=== PATIENT | female | born 1965 | race Caucasian/White ===

== ENCOUNTER 2016-07-30 17:13 | Observation (INO) | payer BC ==
[~2016-07-30] VITALS: Ht 157.5 cm; Wt 73.6 kg
[2016-07-30] MEDS ORDERED: METOCLOPRAMIDE INJ 10MG/2ML VIAL (J2765) As Ordered ONE (18:52)
--- NOTE | 2016-07-30 19:00 | REPUSA ---
CLINICAL HISTORY: CVA. TECHNIQUE: Multiple axial brain CT scan sections were obtained from base to vertex without contrast a dministration. COMMENTS: The study shows normal configuration of sella turcica. There are no intra or extra-axial collections. There is no mass effect or midline shift. There is no evidence of hematoma formation. No hydrocephal us is present. No abnormal calcifications are noted. No significant abnormalities are seen either in the posterior fossa or supratentorial compartment. The sinuses and mastoid air cells are patent. IMPRESSION: No evidence of acute intracranial pathology. Consider follow up with MRI/diffusion as clinically war ranted. Thank you for your kind referral of this patient.
[2016-07-30 19:20] LABS: BASO % 0.3 % (0.0-1.0); EOS % 0.6 % (0.0-3.0); LARGE UNSTAINED CELL # 0.1 K/mm3 (0.0-0.4); LARGE UNSTAINED CELL % 1.4 % (0.0-4.0); LYMPH # 2.7 K/mm3 (1.5-4.5); LYMPH % 30.5 % (24.0-44.0); MEAN CORPUSCULAR HEMOGLOBIN 30.2 pg (27.0-33.0); MEAN CORPUSCULAR HGB CONC 33.9 g/dl (32.0-36.5); MEAN CORPUSCULAR VOLUME 89.1 fl (80.0-96.0); MONO # 0.4 K/mm3 (0.0-0.8); MONO % 4.3 % (0.0-5.0); NEUTROPHILS # 5.5 K/mm3 (1.8-7.7); NEUTROPHILS % 62.9 % (36.0-66.0); PLATELET COUNT, AUTOMATED 244 k/mm3 (150-450); RED CELL DISTRIBUTION WIDTH 11.8 % (11.5-14.5); WHITE BLOOD COUNT 8.8 K/mm3 (4.0-10.0)
[2016-07-30 19:43] LABS: ALBUMIN 3.9 GM/DL (3.2-5.2); ALBUMIN/GLOBULIN RATIO 1.22 (1.00-1.93); ALKALINE PHOSPHATASE 64 U/L (45-117); ALT/SGPT 23 U/L (12-78); ANION GAP 7 MEQ/L (8-16); AST/SGOT 15 U/L (15-37); BILIRUBIN,DIRECT < 0.1 MG/DL (0.0-0.2); BILIRUBIN,TOTAL 0.3 MG/DL (0.2-1.0); BLOOD UREA NITROGEN 16 MG/DL (7-18); CALCIUM LEVEL 8.8 MG/DL (8.5-10.1); CARBON DIOXIDE LEVEL 28 MEQ/L (21-32); CHLORIDE LEVEL 106 MEQ/L (98-107); CREATININE FOR GFR 0.91 MG/DL (0.55-1.02); GLOMERULAR FILTRATION RATE > 60.0 (>51); GLUCOSE, FASTING 91 MG/DL (70-105); POTASSIUM SERUM 3.5 MEQ/L (3.5-5.1); SODIUM LEVEL 141 MEQ/L (136-145); TOTAL PROTEIN 7.1 GM/DL (6.4-8.2)
[2016-07-30] MEDS ORDERED: KETOROLAC 30 MG/ML VIAL (J1885) As Ordered ONE (20:04)
[2016-07-30 20:09] LABS: ERYTHROCYTE SEDIMENTATION RATE 14 mm/hr (0-30)
[2016-07-30] MEDS ORDERED: VENLAFAXINE **XR** 75MG CAPSULE PO SCH (21:00)
[2016-07-30] MEDS ORDERED: ATORVASTATIN 10 MG TAB PO SCH (21:00)
--- NOTE | 2016-07-30 21:10 | REPUSA ---
MRI of the brain Clinical history: possible stroke. Comparison: 07/30/2016. Technique: Multiecho multiplanar MRI images of the brain were obtained without administration of cont rast. Diffusion weighted images with ADC mapping was also obtained. Findings: The ventricles and sulci are symmetric bilaterally. The brain parenchyma demonstrates uniform and nor mal signal on all sequences. There is no midline shift, mass effect, or extra-axial fluid collection. The midline intracranial structures do not demonstrate any gross abnormalities. The cervical cranial junction is intact. The orbits are unremarkable. The visualized paranasal sinuses and mastoid air ce lls are clear. The osseous structures and superficial soft tissues are unremarkable. The vascular str uctures demonstrate appropriate flow voids. Impression: Normal MRI of the Brain.
[2016-07-30] MEDS ORDERED: DEXI30CA PO (21:11)
[2016-07-30] MEDS ORDERED: VITA50003 PO (21:11)
[2016-07-30] MEDS ORDERED: VENL150C43 PO (21:11)
[2016-07-30] MEDS ORDERED: ATOR1TAB19 PO (21:11)
[2016-07-30] MEDS ORDERED: IBUPOTC PO (21:11)
[2016-07-30] MEDS ORDERED: LISI30TA4 PO (21:11)
--- NOTE | 2016-07-30 21:20 | REPUSA ---
MRA of the brain. Comparison: MRI, 07/30/2016. Clinical history: possible stroke. Technique: [id number] MRA images of the brain were obtained without administration of contrast. 3 -D MIP images were also obtained. Findings: The vascular structures extending from the distal carotid and vertebrobasilar arterial syst ems, through the [place], demonstrate normal caliber and contour. There is no evidence of an eurysm, stenosis, or thrombosis. Impression: Unremarkable MRA examination of the brain.
[2016-07-30] MEDS ORDERED: POTASSIUM CHLORIDE 10 MEQ SR TABLET PO SCH (21:30)
[2016-07-30] MEDS ORDERED: ACETAMINOPHEN TAB 650MG DOSE (2X325MG) PO PRN (21:45)
[2016-07-30] MEDS ORDERED: ONDANSETRON 4MG/2ML VIAL (J2405) IV PRN (21:45)
[2016-07-30] MEDS ORDERED: KETOROLAC 30 MG/ML VIAL (J1885) IV PRN (21:45)
[2016-07-30] MEDS ORDERED: METOCLOPRAMIDE INJ 10MG/2ML VIAL (J2765) IV PRN (21:45)
[2016-07-30] MEDS ORDERED: ATORVASTATIN 20 MG TAB As Ordered ONE (22:51)
[2016-07-30] MEDS ORDERED: VENLAFAXINE **XR** 75MG CAPSULE As Ordered ONE (22:51)
[2016-07-30] MEDS ORDERED: POTASSIUM CHLORIDE 10 MEQ SR TABLET As Ordered ONE (22:51)
[2016-07-30 23:00] VITALS: BP 120/58
--- NOTE | 2016-07-30 23:24 | HPE ---
DATE OF ADMISSION: 07/30/2016 PRIMARY CARE PROVIDER: Alisha Jacob NP CHIEF COMPLAINT: Headache, tinnitus and left upper extremity paresthesia. HISTORY OF PRESENT ILLNESS: This is a 50-year-old female patient with underlying medical history of depression, dyslipidemia, hypertension, gastroesophageal reflux disease (GERD), presented since Saturday with episodic headache. As per patient was occipital radiating to the front of parietal lobes, lasting about 20 minutes, aching and throbbing with palpating pain. At its worst ranging from 10 out of 10 to about 7 out of 10. The patient also reported associated left ear tinnitus and left hand and shoulder numbness, and tingling sensation. Reported mild lightheadedness. No fevers, chills, chest pain, pressure or discomfort. No coughing. Denies any previous similar episode. The patient subsequently had one episode on Saturday, one episode on Saturday, one episode on Saturday. As per patient, does not worsen with light. No relieving factors either. ALLERGIES: LATEX, PYRIDINE NITRATE, ORGANIC NITROFURANTOIN, PENICILLIN, SULFA DRUGS, SULFA DRUG CROSS-REACTORS. PAST MEDICAL HISTORY: Depression. Dyslipidemia. Hypertension. Gastroesophageal reflux disease (GERD). PAST SURGICAL HISTORY: Dilation and curettage (D and C). section. Hysterectomy. Left ankle open reduction internal fixation. SOCIAL HISTORY: Patient denies smoking. Once a week drinks about three beers. FAMILY HISTORY: Noncontributory. REVIEW OF SYSTEMS: Negative except for those mentioned in the HPI. HOME MEDICATIONS: - Lipitor 10 mg by mouth nightly - Dexilant 30 mg by mouth nightly - vitamin C 50,000 units by mouth once a week - ibuprofen 800 mg by mouth three times a day as needed - lisinopril 30 mg by mouth daily - venlafaxine 150 mg by mouth nightly PHYSICAL EXAMINATION: VITAL SIGNS: Blood pressure 163/84, pulse 82, respirations 18, temperature 98.1, pulse oximetry 100% on room air. GENERAL: The patient alert and oriented times three. No acute distress. HEENT: Normocephalic, atraumatic. PULMONARY: Bilateral clear to auscultation. CARDIAC: Regular rate and rhythm. Normal S1, S2. ABDOMEN: Soft, nontender, nondistended. EXTREMITIES: No clubbing, cyanosis or edema. NEUROLOGICAL: Cranial nerves II through XII grossly intact. Upper and lower extremity strength 5 out of 5 bilateral. Brisk reflexes 2+ bilateral. LABORATORY: WBC 8.8, hemoglobin and hematocrit 12.8/37.8, platelets 244. Chemistry: Sodium 141, potassium 3.5, chloride 106, bicarbonate 28, BUN 16, creatinine 0.91. C-reactive protein less than 0.3. MRI of the brain and MRA of the brain negative. ASSESSMENT AND PLAN: This is a 50-year-old female patient with underlying medical history of depression, hypertension, dyslipidemia, GERD, presented with headache and questionable transient ischemic attack (TIA). 1. Headache and questionable TIA. Possible tension headache. MRI/MRA appreciate. Negative. Followup carotid ultrasound. Followup echocardiogram, EKG. Will give Toradol and Reglan to see if improvement. Neuro checks. Aspirin has been added. The patient already on statin at home. Will continue to monitor. Followup lipid panel in the morning. 2. Hypertension. Continue blood pressure medication. Adjust as needed. 3. Dyslipidemia. Continue statin. 4. Depression. Continue home medication. 5. Gastroesophageal reflux disease (GERD). Continue proton pump inhibitor (PPI). 6. Deep venous thrombosis (DVT) prophylaxis. Lovenox subcutaneous. DISPOSITION PLANNING: Home safety evaluation. Echocardiogram and carotid Doppler.
[2016-07-30 23:30] VITALS: BP_SYST 144; BP_SYST 149; BP_SYST 152; BP_DIAS 75; BP_DIAS 89
--- NOTE | 2016-07-31 03:37 | REP ---
Clinical: Transient ischemic attacks . Technique: Kirby scale and color Doppler evaluation using linear high frequency transducer Findings: Two-dimensional kirby scale and color images demonstrate normal arterial lumen with laminar flow and no appreciable narrowing. Color Doppler interrogation demonstrates normal arterial wave patterns and velocities with no significant spectral broadening. Normal flow direction is appreciated in the bilateral vertebral arteries. RIGHT (cm/s) LEFT (cm/s) ICA peak systolic velocity 71.2 69.5 ICA diastolic velocity 28.3 36.2 ECA peak systolic velocity 90.5 63.6 CCA peak systolic velocity 111.1 85.6 ICA/CCA ratio 0.6 0.8 Impression: No hemodynamically significant areas of narrowing or stenosis appreciated. Based on set standards narrowing falls within the normal range. Signed by Jose Haynes MD 07/31/2016 03:28 A
[2016-07-31 04:00] VITALS: BP 139/72
[2016-07-31 06:21] LABS: MEAN CORPUSCULAR HEMOGLOBIN 30.8 pg (27.0-33.0); MEAN CORPUSCULAR HGB CONC 34.6 g/dl (32.0-36.5); MEAN CORPUSCULAR VOLUME 89.1 fl (80.0-96.0); RED CELL DISTRIBUTION WIDTH 11.8 % (11.5-14.5); WHITE BLOOD COUNT 6.5 K/mm3 (4.0-10.0)
[2016-07-31 06:44] LABS: ANION GAP 7 MEQ/L (8-16); BLOOD UREA NITROGEN 17 MG/DL (7-18); CALCIUM LEVEL 8.6 MG/DL (8.5-10.1); CARBON DIOXIDE LEVEL 27 MEQ/L (21-32); CHLORIDE LEVEL 110 MEQ/L (98-107); CHOLESTEROL LEVEL 212 MG/DL (<200); CREATININE FOR GFR 0.86 MG/DL (0.55-1.02); GLOMERULAR FILTRATION RATE > 60.0 (>51); GLUCOSE, FASTING 93 MG/DL (70-105); MAGNESIUM LEVEL 2.1 MG/DL (1.8-2.4); POTASSIUM SERUM 4.4 MEQ/L (3.5-5.1); SODIUM LEVEL 144 MEQ/L (136-145); T UPTAKE 32 % (30-39); THYROXINE (T4) 8.5 UG/DL (4.5-12.0); TRIGLYCERIDES LEVEL 185 MG/DL (<150)
[2016-07-31] MEDS ORDERED: METOCLOPRAMIDE INJ 10MG/2ML VIAL (J2765) As Ordered ONE (06:47)
[2016-07-31] MEDS ORDERED: KETOROLAC 30 MG/ML VIAL (J1885) As Ordered ONE (06:47)
[2016-07-31 08:00] VITALS: BP 148/80
--- NOTE | 2016-07-31 08:20 | REP ---
MRI CERVICAL SPINE WITHOUT CONTRAST: HISTORY: Headache. A small central disc protrusion is present at the C2-3 level. There is minimal effacement of the thecal sac without spinal cord compression. The C2 neural foramina are patent. A small right paracentral disc protrusion is present at the C3-4 level. There is minimal effacement of the thecal sac without spinal cord compression. Uncinate process hypertrophy is present on the left. This produces minimal narrowing of the left C3 neural foramen. The right C3 neural foramen is patent. A disc bulge is present at the C4-5 level. There is minimal effacement of the thecal sac without spinal cord compression. The C4 neural foramina are patent. A disc bulge with associated osteophyte formation is present at the C5-6 level. There is mild effacement of the thecal sac without spinal cord compression. Bilateral uncinate process hypertrophy is present. This produces minimal and mild narrowing of the right and left C5 neural foramina respectively. A disc bulge and small left paracentral disc protrusion are present at the C6-7 level. There is mild effacement of the thecal sac without spinal cord compression. Uncinate process hypertrophy is present on the left. This produces mild narrowing of the left C6 neural foramen. The right C6 neural foramen is patent. There is no other disc bulge or herniation. The remaining neural foramina are patent. The spinal cord is normal in signal intensity. There is no intradural extramedullary lesion. The C5-6 intervertebral disc is decreased in height consistent with disc degeneration. Normal signal intensity is present in the cervical vertebral bodies. IMPRESSION: There is cervical spondylosis at the C2-3 through C6-7 levels without spinal cord compression. Signed by Jose Luis Raines MD 07/31/2016 08:36 A
[2016-07-31] MEDS ORDERED: ENOXAPARIN 40 MG/0.4 ML SYRINGE (J1650) SC SCH (09:00)
[2016-07-31] MEDS ORDERED: PANTOPRAZOLE 40MG TAB (PROTONIX) PO SCH (09:00)
[2016-07-31] MEDS ORDERED: ASPIRIN 81 MG ENTERIC TAB PO SCH (09:00)
[2016-07-31] MEDS ORDERED: SENOKOT S TAB PO SCH (09:00)
[2016-07-31] MEDS ORDERED: LISINOPRIL 10 MG TAB PO SCH (09:00)
[2016-07-31 09:34] VITALS: BP 154/78
--- NOTE | 2016-07-31 09:42 | DSES ---
DATE OF ADMISSION: 07/30/2016 DATE OF DISCHARGE: REASON FOR ADMISSION: The patient presented to the emergency department with complaint of right occipital headache, nausea and very transient, lasting only a few seconds, paresthesias of the left hand and arm. The sequence was interpreted as a transient ischemic attack. She was admitted. Imaging was carried out with brain MRI, CT of her brain, vascular ultrasound. All of the studies were negative. Cervical spine MRI was also done this morning, which showed small disc bulge and left paracentral disc protrusion at C6-C7 level, disc bulge and associated osteophyte seen at C5-C6 level and some mild effacement of the thecal sac, but no spinal cord compression. There is minimal mild narrowing of the right and left C5 neural foramen. There was also right paracentral disc protrusion at C3-4 level, again some effacement of the thecal sac without spinal cord compression and some narrowing of the left C3 and right C3 neural foramen were observed. HOSPITAL COURSE: She was treated for a headache with combinations of metoclopramide, Ketorolac, and symptoms improved. In fact, at this point, she is asymptomatic, having received a repeat dose of Ketorolac this morning. Moves the neck well without any evidence of triggering of paresthesias. There is no focal weakness. No sensory deficit. Her speech is clear. She is alert, oriented and there is no other neurologic disturbance present. Blood pressure is 139/72 at 0400, 148/80 at 0800. She is afebrile with a temperature of 98.1. Oxygen saturation is 96% on room air, pulse 69, respiratory rate 18. DISCHARGE DIAGNOSIS: Right-sided occipital headache with associated transient left arm paresthesia. Although this could be a TIA, it is also possible and more likely that this was a complex migraine and it is possible that she had some paresthesias related to spondylosis and degenerative disc disease, as evidenced by the imaging study, as noted. Neural directed imaging was entirely negative. She does have a remote history of migraine, although none quite as severe as this one that brought her to the emergency department this time. PLAN: She will followup. Routine activity. Diet per her usual routine. She can return to work tomorrow. As needed use of Motrin or Aleve was reviewed. She is not a smoker and will continue to abstain from tobacco use. Followup with her primary care provider in 1 to 2 weeks, and contact us or her primary care provider if there is any recurrent symptoms. DISCHARGE DIAGNOSES: 1. Right-sided occipital headache, possible migraine. 2. Transient left arm paresthesia. 3. Cervical spondylosis. 4. History of hypertension. 5. History of hypercholesterolemia.
--- NOTE | 2016-07-31 10:35 | EDDOCDS ---
Nurse's Notes [facility] Name: Yazmin Beatty Age: 50 yrs Sex: Female : 1965 Arrival Date: 07/30/2016 Time: 17:13 Bed Admit Hold Private MD: Mariely Jacob NP Diagnosis: Headache Presentation: 07/30 17:33 Presenting complaint: Patient states: pt reports waking up on Saturday with a headache, ead denies relief with Motrin. denies hx of headaches. reports 3 similar headaches of the past month. This patient has no additional risk factors. Adult Sepsis Screening: The patient does not have new or worsening altered mentation. Patient's respiratory rate is less than 22. Systolic blood pressure is greater than 100. Patient has a qSOFA score of 0- Negative Sepsis Screen. 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 Transition of care: patient was not received from another setting of care. 17:33 Acuity: ARMANDO Level 3 ead 17:33 Method Of Arrival: Walkin/Carried/Asstd ead 17:37 Suicide/Homicide risk assessment- the patient denies having any suicidal and/or ead homicidal ideations and does not present with any other emotional, behavioral or mental health complaints. Triage Assessment: 17:33 Headache History: This patient does not have a history of previous headaches. General: ead Appears in no apparent distress, Behavior is appropriate for age, cooperative. Pain: Location: face, right ear and left ear. Pain: Pain currently is 7 out of 10 on a pain scale. Pain began 2-3 days ago Also complains of no other associated symptoms. Pain: Quality of pain is described as pressure. HIV screening NA for this visit Offered previously. Neurological: Level of Consciousness is awake, alert, obeys commands, Oriented to person, place, time. 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 . Respiratory: Airway is patent Respiratory effort is even, unlabored. Derm: Skin is pink, warm & dry. 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 lisinopril 30 mg Oral tab 1 tab once daily 2. Effexor 150 mg Oral nightly 3. Dexilant 20mg oral 1 cap nightly - PMHx: Depression; Hypercholesterolemia; Hypertension; GERD; - PSHx: D & C; (1986); Hysterectomy (1995); C section; - Social history: No barriers to communication noted, The patient speaks fluent Korean, Speaks appropriately for age, Smoking status: Patient states was never smoker of tobacco. - Family history: Not pertinent. - : The pt / caregiver states he / she is not on anticoagulants. Home medication list is obtained from the patient. - Exposure Risk Screening:: None identified. Screenin:55 Screening information is obtained from the patient. Fall risk: No risks identified. jmk Assistance ADL's: requires no assistance with activities of daily living. Abuse/DV Screen: The patient / caregiver reports he/she is: not in a situation that causes fear, pain or injury. Nutritional screening: No deficits noted. Advance Directives: Currently, there is no health care proxy. There is no active DNR order. There is no living will. There is no Power of Promotion Specialist. Advance directive information has not previously been placed in an [facility] medical record. home support is adequate. Assessment: 17:55 General: Appears alert and oriented x 3/ JUDITH minimally light sensitive. Indicates jmk discomfort changes location from occipital region to forehead. describes chirping sensation that has been intermittent to left ear. denies pain with movement of ear pinna. DÍAZ readily and without defects now or prior.. Pain: Pain currently is 4 out of 10 on a pain scale. Neurological: Level of Consciousness is awake, alert, Oriented to person, place, time. EENT: No deficits noted. 18:50 General: Appears describes 2-3/10 discomfort. remains alert/ oriented x 3.. jmk 19:52 General: Appears in no apparent distress, Behavior is cooperative. General: reports of rs3 right parietal area pain localized pain, not radiating. waiting on test results. denies of nausea/ will continue to monitor. . Pain: Pain currently is 5 out of 10 on a pain scale. 20:13 General: Sent to MRI. rs3 21:30 General: Appears in no apparent distress, returned from MRI. tolerated procedure well. rs3 admitting provider with patient. headache improved after Toradol. Eating boxed lunch. waiting for monitor bed to move her ot admit hold. . 22:30 General: Appears in no apparent distress, Behavior is appropriate for age, cooperative, rs3 denies of headache. resting comfortable. home comfort advisor on. vital stable. Vital Signs: 17:15 BP 163 / 84; Pulse 82; Resp 18; Temp 98.1(O); Pulse Ox 100% on R/A; Weight 70.31 kg ct3 (R); Height 5 ft. 2 in. (157.48 cm) (R); Pain 6/10; 20:04 BP 175 / 96; Pulse 70; Resp 18; Temp 98.6; Pulse Ox 97% ; Pain 5/10; ajs 22:36 BP 135 / 75 (auto/); rs3 22:37 Pulse 76 MON; Pulse Ox 98% ; rs3 22:50 BP 120 / 58 (auto/); rs3 23:01 Pulse 70 MON; rs3 17:15 Body Mass Index 28.35 (70.31 kg, 157.48 cm) ct3 Vitals: 17:15 Log In Time: July 30, 2016 at 17:13. ct3 Visual Acuity: 18:50 Left Eye Visual acuity 20/15, ; Right Eye Visual acuity 20/15, ; Both Eyes Visual jmk acuity 20/15; Without Lenses; ED Course: 17:14 Patient visited by Sherrell Tracey PCA. ct3 17:14 Patient moved to Waiting ct3 17:15 Mariely Jacob is Private Physician. ct3 17:16 Patient visited by Sherrell Tracey PCA. ct3 17:16 Patient moved to Pre RCE ct3 17:34 Triage Initiated ead 17:38 Porsha Francis, RN is Primary Nurse. ead 17:38 Patient moved to I8 / 16 ead 18:00 Patient visited by Mayito Resendez,AGUS. jmk 18:08 Filemon Raymond MD is Attending Physician. br1 18:17 Patient visited by Filemon Raymond MD. br1 19:06 Primary Nurse role handed off by Porsha Francis, RN j 19:07 C REACTIVE PROTEIN QUANTITATIV Sent. nithink 19:07 ERYTHROCYTE SEDIMENTATION RATE Sent. nithink 19:07 Liver Profile Sent. jmk 19:07 BMP Sent. jmk 19:07 CBC with Diff Sent. jmk 19:08 Patient visited by Mayito Resendez,RN. jmk 19:08 Inserted saline lock: 20 gauge in left antecubital area. jmk 19:17 CT Head Without Contrast Returned. EDMS 19:53 Patient visited by Keri Dlil,AGUS. rs3 20:04 Patient visited by Parul Barron. ajs 20:24 Patient moved to MRI ajs 20:25 Iris Ibarra is Hospitalizing Provider. br1 21:45 Patient visited by Parul Barron. ajs 21:45 EKG done. (by ED staff). Reviewed by Filemon Raymond MD. ajs 21:48 -MRI-Brain without Returned. EDMS 21:48 -MRA-Brain without contrast Returned. EDMS 21:54 Patient moved to Admit Hold sls1 21:58 Patient moved to Ultrasound hgl 22:06 Patient moved to Admit Hold sls1 22:26 Pt greeted and oriented to ED. Patient advised of names of staff involved in care, ajs location of call olivares, wait times and NPO status. Patient has correct armband on for positive identification. Placed in gown. Bed in low position. Call light in reach. Side rails up X2. PT MOVED TO RM 18, FOR ADMIT HOLD STATUS, PT PLACED IN HOSPITAL BED. PT GIVEN HOSPITAL PANTS, SOCKS AND FRESH WARM BLANKETS. roll dough divider on. 22:27 Patient visited by Parul Barron. ajs 22:41 [facility] Payment Agreement was scanned into [employer] and attached to record. zo 0207 03:53 Duplex,carotid (complete) Returned. EDMS 08:55 MRI Spine,Cervical without con Returned. EDMS 09:53 T-Sheet-- Draft Copy was scanned into [employer] and attached to record. gb 09:56 Radiology Report was scanned into [employer] and attached to record. gb 10:33 Mariely Jacob is Referral Physician. sd1 Administered Medications: 07/30 19:07 Drug: NS 0.9% 1000 ml Route: IV; Rate: 150 mL/hr; Site: left antecubital; jmk 19:07 Drug: Metoclopramide 10 mg [metoclopramide 5 mg/mL injection solution] Route: IV; Rate: jmk 40 mg/hr; Infused Over: 15 mins; Site: left antecubital; 20:12 Follow up: IV Status: Completed infusion rs3 20:12 Drug: ketorolac 30 mg [ketorolac 30 mg/mL (1 mL) injection solution (1 mL)] Route: IVP; rs3 Site: left antecubital; Order Results: Lab Order: CBC with Diff; SPEC'M 07/30/16 19:02 Test: WHITE BLOOD COUNT; Value: 8.8; Range: 4.0-10.0; Units: K/mm3; Status: F Test: RED BLOOD COUNT; Value: 4.25; Range: 4.00-5.40; Units: M/mm3; Status: F Test: HEMOGLOBIN; Value: 12.8; Range: 12.0-16.0; Units: g/dl; Status: F Test: HEMATOCRIT; Value: 37.8; Range: 36.0-47.0; Units: %; Status: F Test: MEAN CORPUSCULAR VOLUME; Value: 89.1; Range: 80.0-96.0; Units: fl; Status: F Test: MEAN CORPUSCULAR HEMOGLOBIN; Value: 30.2; Range: 27.0-33.0; Units: pg; Status: F Test: MEAN CORPUSCULAR HGB CONC; Value: 33.9; Range: 32.0-36.5; Units: g/dl; Status: F Test: RED CELL DISTRIBUTION WIDTH; Value: 11.8; Range: 11.5-14.5; Units: %; Status: F Test: PLATELET COUNT, AUTOMATED; Value: 244; Range: 150-450; Units: k/mm3; Status: F Test: NEUTROPHILS %; Value: 62.9; Range: 36.0-66.0; Units: %; Status: F Test: LYMPH %; Value: 30.5; Range: 24.0-44.0; Units: %; Status: F Test: MONO %; Value: 4.3; Range: 0.0-5.0; Units: %; Status: F Test: EOS %; Value: 0.6; Range: 0.0-3.0; Units: %; Status: F Test: BASO %; Value: 0.3; Range: 0.0-1.0; Units: %; Status: F Test: LARGE UNSTAINED CELL %; Value: 1.4; Range: 0.0-4.0; Units: %; Status: F Test: NEUTROPHILS #; Value: 5.5; Range: 1.8-7.7; Units: K/mm3; Status: F Test: LYMPH #; Value: 2.7; Range: 1.5-4.5; Units: K/mm3; Status: F Test: MONO #; Value: 0.4; Range: 0.0-0.8; Units: K/mm3; Status: F Test: EOS #; Value: 0.0; Range: 0.0-0.50; Units: K/mm3; Status: F Test: BASO #; Value: 0.0; Range: 0.0-0.2; Units: K/mm3; Status: F Test: LARGE UNSTAINED CELL #; Value: 0.1; Range: 0.0-0.4; Units: K/mm3; Status: F Lab Order: [facility]; SPEC'M 07/30/16 19:02 Test: GLUCOSE, FASTING; Value: 91; Range: 70-105; Units: MG/DL; Status: F Test: BLOOD UREA NITROGEN; Value: 16; Range: 7-18; Units: MG/DL; Status: F Test: CREATININE FOR GFR; Value: 0.91; Range: 0.55-1.02; Units: MG/DL; Status: F Test: GLOMERULAR FILTRATION RATE; Value: > 60.0; Range: >51; Status: F Test: SODIUM LEVEL; Value: 141; Range: 136-145; Units: MEQ/L; Status: F Test: POTASSIUM SERUM; Value: 3.5; Range: 3.5-5.1; Units: MEQ/L; Status: F Test: CHLORIDE LEVEL; Value: 106; Range: 98-107; Units: MEQ/L; Status: F Test: CARBON DIOXIDE LEVEL; Value: 28; Range: 21-32; Units: MEQ/L; Status: F Test: ANION GAP; Value: 7; Range: 8-16; Abnormal: Below low normal; Units: MEQ/L; Status: F Test: CALCIUM LEVEL; Value: 8.8; Range: 8.5-10.1; Units: MG/DL; Status: F Test Note: ; Units are mL/min/1.73 m2 Chronic Kidney Disease Staging per NKF: Stage I & II GFR >=60 Normal to Mildly Decreased Stage III GFR 30-59 Moderately Decreased Stage IV GFR 15-29 Severely Decreased Stage V GFR <15 Very Little GFR Left ESRD GFR <15 on NEWS WRITER Lab Order: Liver Profile; [facility] 07/30/16 19:02 Test: AST/SGOT; Value: 15; Range: 15-37; Units: U/L; Status: F Test: ALT/SGPT; Value: 23; Range: 12-78; Units: U/L; Status: F Test: ALKALINE PHOSPHATASE; Value: 64; Range: 45-117; Units: U/L; Status: F Test: BILIRUBIN,TOTAL; Value: 0.3; Range: 0.2-1.0; Units: MG/DL; Status: F Test: BILIRUBIN,DIRECT; Value: < 0.1; Range: 0.0-0.2; Units: MG/DL; Status: F Test: TOTAL PROTEIN; Value: 7.1; Range: 6.4-8.2; Units: GM/DL; Status: F Test: ALBUMIN; Value: 3.9; Range: 3.2-5.2; Units: GM/DL; Status: F Test: ALBUMIN/GLOBULIN RATIO; Value: 1.22; Range: 1.00-1.93; Status: F Lab Order: ERYTHROCYTE SEDIMENTATION RATE; [facility] 07/30/16 19:02 Test: ERYTHROCYTE SEDIMENTATION RATE; Value: 14; Range: 0-30; Units: mm/hr; Status: F Lab Order: C REACTIVE PROTEIN QUANTITATIV; [facility]07/30/16 19:02 Test: C REACTIVE PROTEIN QUANTITATIV; Value: < 0.30; Range: 0.00-0.30; Units: MG/DL; Status: F Lab Order: THYROID PROFILE; [facility]07/31/16 06:06 Test: T UPTAKE; Value: 32; Range: 30-39; Units: %; Status: F Test: THYROXINE (T4); Value: 8.5; Range: 4.5-12.0; Units: UG/DL; Status: F Test: FREE THYROXINE INDEX; Value: 2.7; Range: 1.3-4.8; Units: %; Status: F Test: THYROID STIMULATING HORMONE; Value: 2.240; Range: 0.358-3.740; Units: uIU/ML; Status: F Lab Order: COMPLETE BLOOD COUNT; [facility]07/31/16 06:06 Test: WHITE BLOOD COUNT; Value: 6.5; Range: 4.0-10.0; Units: K/mm3; Status: F Test: RED BLOOD COUNT; Value: 3.98; Range: 4.00-5.40; Abnormal: Below low normal; Units: M/mm3; Status: F Test: HEMOGLOBIN; Value: 12.3; Range: 12.0-16.0; Units: g/dl; Status: F Test: HEMATOCRIT; Value: 35.5; Range: 36.0-47.0; Abnormal: Below low normal; Units: %; Status: F Test: MEAN CORPUSCULAR VOLUME; Value: 89.1; Range: 80.0-96.0; Units: fl; Status: F Test: MEAN CORPUSCULAR HEMOGLOBIN; Value: 30.8; Range: 27.0-33.0; Units: pg; Status: F Test: MEAN CORPUSCULAR HGB CONC; Value: 34.6; Range: 32.0-36.5; Units: g/dl; Status: F Test: RED CELL DISTRIBUTION WIDTH; Value: 11.8; Range: 11.5-14.5; Units: %; Status: F Test: PLATELET COUNT, AUTOMATED; Value: 215; Range: 150-450; Units: k/mm3; Status: F Lab Order: BASIC METABOLIC PROFILE; [facility]07/31/16 06:06 Test: GLUCOSE, FASTING; Value: 93; Range: 70-105; Units: MG/DL; Status: F Test: BLOOD UREA NITROGEN; Value: 17; Range: 7-18; Units: MG/DL; Status: F Test: CREATININE FOR GFR; Value: 0.86; Range: 0.55-1.02; Units: MG/DL; Status: F Test: GLOMERULAR FILTRATION RATE; Value: > 60.0; Range: >51; Status: F Test: SODIUM LEVEL; Value: 144; Range: 136-145; Units: MEQ/L; Status: F Test: POTASSIUM SERUM; Value: 4.4; Range: 3.5-5.1; Abnormal: Delta; Units: MEQ/L; Status: F Test: CHLORIDE LEVEL; Value: 110; Range: 98-107; Abnormal: Above high normal; Units: MEQ/L; Status: F Test: CARBON DIOXIDE LEVEL; Value: 27; Range: 21-32; Units: MEQ/L; Status: F Test: ANION GAP; Value: 7; Range: 8-16; Abnormal: Below low normal; Units: MEQ/L; Status: F Test: CALCIUM LEVEL; Value: 8.6; Range: 8.5-10.1; Units: MG/DL; Status: F Test Note: ; Units are mL/min/1.73 m2 Chronic Kidney Disease Staging per NKF: Stage I & II GFR >=60 Normal to Mildly Decreased Stage III GFR 30-59 Moderately Decreased Stage IV GFR 15-29 Severely Decreased Stage V GFR <15 Very Little GFR Left ESRD GFR <15 on NEWS WRITER Lab Order: MAGNESIUM LEVEL; [facility] 07/31/16 06:06 Test: MAGNESIUM LEVEL; Value: 2.1; Range: 1.8-2.4; Units: MG/DL; Status: F Lab Order: CARDIAC MARKER PANEL; [facility] 07/31/16 06:06 Test: CPK CREATINE PHOSPHOKINASE; Value: 90; Range: 26-192; Units: U/L; Status: F Test: CK-MB VALUE MASS; Value: 1.1; Range: 0.0-3.6; Units: NG/ML; Status: F Test: MB/CK RELATIVE INDEX; Value: 1.22; Range: < OR =4; Status: F Test: TROPONIN I; Value: < 0.02; Range: < 0.10; Units: NG/ML; Status: F Test Note: ; DIAGNOSIS CRITERIA MMB ng/ml Relative Index (RI) NON-AMI < or = 5 N/A KIRBY ZONE > 5 < or = 4 AMI > 5 > 4 Lab Order: CARDIAC MARKER PANEL; [facility] 07/30/16 19:02 Test: CPK CREATINE PHOSPHOKINASE; Value: 119; Range: 26-192; Units: U/L; Status: F Test: CK-MB VALUE MASS; Value: 1.8; Range: 0.0-3.6; Units: NG/ML; Status: F Test: MB/CK RELATIVE INDEX; Value: 1.51; Range: < OR =4; Status: F Test: TROPONIN I; Value: < 0.02; Range: < 0.10; Units: NG/ML; Status: F Test Note: ; DIAGNOSIS CRITERIA MMB ng/ml Relative Index (RI) NON-AMI < or = 5 N/A KIRBY ZONE > 5 < or = 4 AMI > 5 > 4 Lab Order: CARDIAC RISK PROFILE; SPEC'M 07/31/16 06:06 Test: TRIGLYCERIDES LEVEL; Value: 185; Range: <150; Abnormal: Above high normal; Units: MG/DL; Status: F Test: CHOLESTEROL LEVEL; Value: 212; Range: <200; Abnormal: Above high normal; Units: MG/DL; Status: F Test: HDL CHOLESTEROL; Value: 53; Range: >40; Units: MG/DL; Status: F Test: LDL CHOLESTEROL; Value: 122.0; Range: <100; Abnormal: Above high normal; Units: MG/DL; Status: F Test: NON-HDL-C; Value: 159; Units: MG/DL; Status: F Test: CHOLESTEROL RISK RATIO; Value: 4.000; Range: <5; Status: F Radiology Order: CT Head Without Contrast Test: CT Head Without Contrast REASON FOR EXAMINATION: CVA >4.5hrs; ; CLINICAL HISTORY: CVA.; TECHNIQUE: Multiple axial brain CT scan sections were obtained from base to vertex without contrast a; dministration.; COMMENTS:; The study shows normal configuration of sella turcica. There are no intra or extra-axial collections.; There is no mass effect or midline shift. There is no evidence of hematoma formation. No hydrocephal; us is present. No abnormal calcifications are noted.; No significant abnormalities are seen either in the posterior fossa or supratentorial compartment.; The sinuses and mastoid air cells are patent.; IMPRESSION:; No evidence of acute intracranial pathology. Consider follow up with MRI/diffusion as clinically war; ranted.; Thank you for your kind referral of this patient.; ; Radiology Order: -MRA-Brain without contrast Test: -MRA-Brain without contrast REASON FOR EXAMINATION: CVA >4.5hrs; ; MRA of the brain.; Comparison: MRI, 07/30/2016.; Clinical history: possible stroke.; Technique: [id number] MRA images of the brain were obtained without administration of contrast. 3; -D MIP images were also obtained.; Findings: The vascular structures extending from the distal carotid and vertebrobasilar arterial syst; ems, through the upper [place] of [place], demonstrate normal caliber and contour. There is no evidence of an; eurysm, stenosis, or thrombosis.; Impression: Unremarkable MRA examination of the brain.; ; Radiology Order: -MRI-Brain without Test: -MRI-Brain without REASON FOR EXAMINATION: CVA >4.5hrs; ; MRI of the brain; Clinical history: possible stroke.; Comparison: 07/30/2016.; Technique: Multiecho multiplanar MRI images of the brain were obtained without administration of cont; rast. Diffusion weighted images with ADC mapping was also obtained.; Findings:; The ventricles and sulci are symmetric bilaterally. The brain parenchyma demonstrates uniform and nor; mal signal on all sequences. There is no midline shift, mass effect, or extra-axial fluid collection.; The midline intracranial structures do not demonstrate any gross abnormalities. The cervical cranial; junction is intact. The orbits are unremarkable. The visualized paranasal sinuses and mastoid air ce; lls are clear. The osseous structures and superficial soft tissues are unremarkable. The vascular str; uctures demonstrate appropriate flow voids.; Impression: Normal MRI of the Brain.; ; Radiology Order: Duplex,carotid (complete) Test: Duplex,carotid (complete) REASON FOR EXAMINATION: TIA; Clinical: Transient ischemic attacks .; ; Technique: Kirby scale and color Doppler evaluation using linear high frequency; transducer; ; Findings:; Two-dimensional kirby scale and color images demonstrate normal arterial lumen; with laminar flow and no appreciable narrowing. Color Doppler interrogation; demonstrates normal arterial wave patterns and velocities with no significant; spectral broadening. Normal flow direction is appreciated in the bilateral; vertebral arteries.; ; RIGHT (cm/s) LEFT (cm/s); ; ICA peak systolic velocity 71.2 69.5; ICA diastolic velocity 28.3 36.2; ECA peak systolic velocity 90.5 63.6; CCA peak systolic velocity 111.1 85.6; ICA/CCA ratio 0.6 0.8; ; Impression:; No hemodynamically significant areas of narrowing or stenosis appreciated.; Based on set standards narrowing falls within the normal range.; ; ; Signed by; Jose Haynes MD 07/31/2016 03:28 A; Radiology Order: MRI Spine,Cervical without con Test: MRI Spine,Cervical without con REASON FOR EXAMINATION: headache; MRI CERVICAL SPINE WITHOUT CONTRAST:; ; HISTORY: Headache.; ; A small central disc protrusion is present at the C2-3 level. There is minimal; effacement of the thecal sac without spinal cord compression. The C2 neural; foramina are patent.; ; A small right paracentral disc protrusion is present at the C3-4 level. There is; minimal effacement of the thecal sac without spinal cord compression. Uncinate; process hypertrophy is present on the left. This produces minimal narrowing of; the left C3 neural foramen. The right C3 neural foramen is patent.; ; A disc bulge is present at the C4-5 level. There is minimal effacement of the; thecal sac without spinal cord compression. The C4 neural foramina are patent.; ; ; A disc bulge with associated osteophyte formation is present at the C5-6 level.; There is mild effacement of the thecal sac without spinal cord compression.; Bilateral uncinate process hypertrophy is present. This produces minimal and; mild narrowing of the right and left C5 neural foramina respectively.; ; A disc bulge and small left paracentral disc protrusion are present at the C6-7; level. There is mild effacement of the thecal sac without spinal cord; compression. Uncinate process hypertrophy is present on the left. This produces; mild narrowing of the left C6 neural foramen. The right C6 neural foramen is; patent.; ; There is no other disc bulge or herniation. The remaining neural foramina are; patent. The spinal cord is normal in signal intensity. There is no intradural; extramedullary lesion. The C5-6 intervertebral disc is decreased in height; consistent with disc degeneration. Normal signal intensity is present in the; cervical vertebral bodies.; ; IMPRESSION:; ; There is cervical spondylosis at the C2-3 through C6-7 levels without spinal cord; compression.; ; ; Signed by; Jose Luis Raines MD 07/31/2016 08:36 A; Outcome: 20:25 Decision to Hospitalize by Provider. br1 07/31 10:34 Discharge ordered by Provider. sd1 10:35 Patient left the ED. sandro Signatures: Dispatcher [employer] EDMS Malini Ramirez MD MD sd1 Jacque Parra RN RN Mayito SarmientoRN RN Gale Michelle, Johnie Reg Marjorie Green Brian, MD MD br1 Porsha Francis RN RN hemanth Dill,KeriRN RN rs3 Sherrell Tracey, REGIONAL CLINICAL RESEARCH ASSOCIATE REGIONAL CLINICAL RESEARCH ASSOCIATE ct3 Parul Barron Shannon, RN RN sls1 Daniella, Asad limal Barbara VargheseRN RN ead Corrections: (The following items were deleted from the chart) 07/30 20:13 20:12 Reassessment: Patient appears in no apparent distress at this time. Patient rs3 states feeling better. Patient states symptoms have improved. rs3 20:13 20:12 Pain: Denies pain. rs3 rs3 MTDD
--- NOTE | 2016-07-31 10:35 | EDDOCDS ---
Physician Documentation [facility] Name: Yazmin Beatty Age: 50 yrs Sex: Female : 1965 Arrival Date: 07/30/2016 Time: 17:13 Bed Admit Hold Private MD: Mariely Jacob NP Disposition: 07/31/16 10:34 Discharged to Home/Self Care. Impression: Headache. - Condition is Stable. - Medication Reconciliation, Local Pharmacy Hours form. - Follow up: Mariely Jacob; When: 1 - 2 days. - Problem is new. - Symptoms have improved. Historical: - Allergies: Demerol (Hives); PENICILLINS (Rash); SULFA (SULFONAMIDES) (Rash); - Home Meds: 1. lisinopril 30 mg Oral tab 1 tab once daily 2. Effexor 150 mg Oral nightly 3. Dexilant 20mg oral 1 cap nightly - PMHx: Depression; Hypercholesterolemia; Hypertension; GERD; - PSHx: D & C; (1986); Hysterectomy (1995); C section; - Social history: No barriers to communication noted, The patient speaks fluent Lithuanian, Speaks appropriately for age, Smoking status: Patient states was never smoker of tobacco. - Family history: Not pertinent. - : The pt / caregiver states he / she is not on anticoagulants. Home medication list is obtained from the patient. - Exposure Risk Screening:: None identified. 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 2 in. (157.48 cm) (R); Pain 6/10; 20:04 BP 175 / 96; Pulse 70; Resp 18; Temp 98.6; Pulse Ox 97% ; Pain 5/10; ajs 22:36 BP 135 / 75 (auto/); rs3 22:37 Pulse 76 MON; Pulse Ox 98% ; rs3 22:50 BP 120 / 58 (auto/); rs3 23:01 Pulse 70 MON; rs3 17:15 Body Mass Index 28.35 (70.31 kg, 157.48 cm) ct3 Visual Acuity: 18:50 Left Eye Visual acuity 20/15, ; Right Eye Visual acuity 20/15, ; Both Eyes Visual jmk acuity 20/15; Without Lenses; MDM: 18:27 IV Saline Lock ordered. br1 18:28 NS 0.9% 1000 ml IV at 150 mL/hr continuous ordered. br1 18:28 Metoclopramide 10 mg IV at 40 mg/hr once over 15 mins ordered. br1 18:28 CBC with Diff Ordered. EDMS 18:28 BMP Ordered. EDMS 18:28 Liver Profile Ordered. EDMS 18:28 Visual Acuity ordered. br1 18:29 CT Head Without Contrast Ordered. EDMS 18:36 ERYTHROCYTE SEDIMENTATION RATE Ordered. EDMS 18:36 C REACTIVE PROTEIN QUANTITATIV Ordered. EDMS 19:32 CBC with Diff Reviewed. br1 19:32 CT Head Without Contrast Reviewed. br1 19:56 BMP Reviewed. br1 19:56 Liver Profile Reviewed. br1 19:56 C REACTIVE PROTEIN QUANTITATIV Reviewed. br1 19:59 MRI Screening Tool - Place on chart, inform RN ordered. br1 19:59 ketorolac 30 mg IVP once ordered. br1 20:00 -MRA-Brain without contrast Ordered. EDMS 20:00 -MRI-Brain without Ordered. EDMS 20:00 BED REQUEST+ADM ordered. EDMS 20:04 MRI Screening Tool - Place on chart, inform RN complete. rs3 20:23 ECG WITH READING ER PHYS+CARDIAG ordered. EDMS 21:38 THYROID PROFILE Ordered. EDMS 21:38 COMPLETE BLOOD COUNT Ordered. EDMS 21:38 BASIC METABOLIC PROFILE Ordered. EDMS 21:38 MAGNESIUM LEVEL Ordered. EDMS 21:39 Duplex,carotid (complete) Ordered. EDMS 21:40 ECHOCARD,DOPPLER/COLOR FLOW ordered. EDMS 21:43 PHYSICAL THERAPY EVAL & TREAT ordered. EDMS 21:43 Admission / Observation Status ordered. EDMS 21:43 LOW FAT LOW CHOLESTEROL DIET ordered. EDMS 22:01 CARDIAC MARKER PANEL Ordered. EDMS 22:12 CARDIAC RISK PROFILE Ordered. EDMS 22:41 [facility] Payment Agreement was scanned into Send[employer]box and attached to record. zo 22:41 Financial registration complete. zo 23:47 BMP Reviewed. br1 23:47 CBC with Diff Reviewed. br1 23:47 Liver Profile Reviewed. br1 23:47 ERYTHROCYTE SEDIMENTATION RATE Reviewed. br1 23:47 C REACTIVE PROTEIN QUANTITATIV Reviewed. br1 23:47 CARDIAC MARKER PANEL Reviewed. br1 23:47 -MRA-Brain without contrast Reviewed. br1 23:47 -MRI-Brain without Reviewed. br1 07/31 06:29 MRI Spine,Cervical without con Ordered. EDMS 09:16 Admission / Observation Status ordered. EDMS 09:53 T-Sheet-- Draft Copy was scanned into Send[employer]box and attached to record. 09:56 Radiology Report was scanned into [employer] and attached to record. gb Administered Medications: 07/30 19:07 Drug: NS 0.9% 1000 ml Route: IV; Rate: 150 mL/hr; Site: left antecubital; [facility] 19:07 Drug: Metoclopramide 10 mg [metoclopramide 5 mg/mL injection solution] Route: IV; Rate: jmk 40 mg/hr; Infused Over: 15 mins; Site: left antecubital; 20:12 Follow up: IV Status: Completed infusion rs3 20:12 Drug: ketorolac 30 mg [ketorolac 30 mg/mL (1 mL) injection solution (1 mL)] Route: IVP; rs3 Site: left antecubital; Signatures: Dispatcher [email or web address] EDMS Malini Ramirez MD MD sd1 Jacque Parra RN RN kcs Knapp, Jean, RN RN jmk Gale James, Reg Reg Marjorie Green Brian, MD MD br1 Keri Dill RN RN rs3 Barbara Varghese RN RN ead The chart was reviewed and I authenticate all verbal orders and agree with the evaluation and treatment provided.Corrections: (The following items were deleted from the chart) 18:35 18:29 ERYTHROCYTE SEDIMENTATION RATE+LAB ordered. EDMS EDMS 18:35 18:29 C REACTIVE PROTEIN QUANTITATIV+LAB ordered. EDMS EDMS 18:51 18:28 Form Setter/Driver/Pulse Ox/q 30 min VS ordered. br1 br1 22:11 22:01 CARDIAC MARKER PANEL ordered. EDMS EDMS 22:12 21:41 CARDIAC RISK PROFILE ordered. EDMS EDMS Attachments: 22:41 [facility] Payment Agreement zo 02/07 09:53 T-Sheet-- Draft Copy gb MTDD
--- NOTE | 2016-08-01 17:36 | ECGEPIP ---
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
--- NOTE | 2016-08-02 11:35 | EDDOCDS ---
Nurse's Notes [facility] Name: Yazmin Arrington Age: 50 yrs Sex: Female : 1965 Arrival Date: 07/30/2016 Time: 17:13 Bed Admit Hold Private MD: Mariely Jacob NP Diagnosis: Headache Presentation: 07/30 17:33 Presenting complaint: Patient states: pt reports waking up on Saturday with a headache, ead denies relief with Motrin. denies hx of headaches. reports 3 similar headaches of the past month. This patient has no additional risk factors. Adult Sepsis Screening: The patient does not have new or worsening altered mentation. Patient's respiratory rate is less than 22. Systolic blood pressure is greater than 100. Patient has a qSOFA score of 0- Negative Sepsis Screen. Status: Patient is not a field service representative or dependent. Transition of care: patient was not received from another setting of care. 17:33 Acuity: ARMANDO Level 3 ead 17:33 Method Of Arrival: Walkin/Carried/Asstd ead 17:37 Suicide/Homicide risk assessment- the patient denies having any suicidal and/or ead homicidal ideations and does not present with any other emotional, behavioral or mental health complaints. Triage Assessment: 17:33 Headache History: This patient does not have a history of previous headaches. General: ead Appears in no apparent distress, Behavior is appropriate for age, cooperative. Pain: Location: face, right ear and left ear. Pain: Pain currently is 7 out of 10 on a pain scale. Pain began 2-3 days ago Also complains of no other associated symptoms. Pain: Quality of pain is described as pressure. HIV screening NA for this visit Offered previously. Neurological: Level of Consciousness is awake, alert, obeys commands, Oriented to person, place, time. 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 . Respiratory: Airway is patent Respiratory effort is even, unlabored. Derm: Skin is pink, warm & dry. 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 lisinopril 30 mg Oral tab 1 tab once daily 2. Effexor 150 mg Oral nightly 3. Dexilant 20mg oral 1 cap nightly - PMHx: Depression; Hypercholesterolemia; Hypertension; GERD; - PSHx: D & C; (1986); Hysterectomy (1995); C section; - Social history: No barriers to communication noted, The patient speaks fluent Syriac, Speaks appropriately for age, Smoking status: Patient states was never smoker of tobacco. - Family history: Not pertinent. - : The pt / caregiver states he / she is not on anticoagulants. Home medication list is obtained from the patient. - Exposure Risk Screening:: None identified. Screenin:55 Screening information is obtained from the patient. Fall risk: No risks identified. jmk Assistance ADL's: requires no assistance with activities of daily living. Abuse/DV Screen: The patient / caregiver reports he/she is: not in a situation that causes fear, pain or injury. Nutritional screening: No deficits noted. Advance Directives: Currently, there is no health care proxy. There is no active DNR order. There is no living will. There is no Power of Clerk Stenographer. Advance directive information has not previously been placed in an [facility] medical record. home support is adequate. Assessment: 17:55 General: Appears alert and oriented x 3/ JUDITH minimally light sensitive. Indicates jmk discomfort changes location from occipital region to forehead. describes chirping sensation that has been intermittent to left ear. denies pain with movement of ear pinna. DÍAZ readily and without defects now or prior.. Pain: Pain currently is 4 out of 10 on a pain scale. Neurological: Level of Consciousness is awake, alert, Oriented to person, place, time. EENT: No deficits noted. 18:50 General: Appears describes 2-3/10 discomfort. remains alert/ oriented x 3.. jmk 19:52 General: Appears in no apparent distress, Behavior is cooperative. General: reports of rs3 right parietal area pain localized pain, not radiating. waiting on test results. denies of nausea/ will continue to monitor. . Pain: Pain currently is 5 out of 10 on a pain scale. 20:13 General: Sent to MRI. rs3 21:30 General: Appears in no apparent distress, returned from MRI. tolerated procedure well. rs3 admitting provider with patient. headache improved after Toradol. Eating boxed lunch. waiting for monitor bed to move her ot admit hold. . 22:30 General: Appears in no apparent distress, Behavior is appropriate for age, cooperative, rs3 denies of headache. resting comfortable. personnel monitor on. vital stable. Vital Signs: 17:15 BP 163 / 84; Pulse 82; Resp 18; Temp 98.1(O); Pulse Ox 100% on R/A; Weight 70.31 kg ct3 (R); Height 5 ft. 2 in. (157.48 cm) (R); Pain 6/10; 20:04 BP 175 / 96; Pulse 70; Resp 18; Temp 98.6; Pulse Ox 97% ; Pain 5/10; ajs 22:36 BP 135 / 75 (auto/); rs3 22:37 Pulse 76 MON; Pulse Ox 98% ; rs3 22:50 BP 120 / 58 (auto/); rs3 23:01 Pulse 70 MON; rs3 17:15 Body Mass Index 28.35 (70.31 kg, 157.48 cm) ct3 Vitals: 17:15 Log In Time: July 30, 2016 at 17:13. ct3 Visual Acuity: 18:50 Left Eye Visual acuity 20/15, ; Right Eye Visual acuity 20/15, ; Both Eyes Visual jmk acuity 20/15; Without Lenses; ED Course: 17:14 Patient visited by Sherrell Tracey PCA. ct3 17:14 Patient moved to Waiting ct3 17:15 Mariely Jacob is Private Physician. ct3 17:16 Patient visited by Sherrell Tracey PCA. ct3 17:16 Patient moved to Pre RCE ct3 17:34 Triage Initiated ead 17:38 Porsha Francis, RN is Primary Nurse. ead 17:38 Patient moved to I8 / 16 ead 18:00 Patient visited by Mayito Resendez,AGUS. jmk 18:08 Cm Raymond MD is Attending Physician. br1 18:17 Patient visited by Cm Raymond MD. br1 19:06 Primary Nurse role handed off by Porsha Francis, RN j 19:07 C REACTIVE PROTEIN QUANTITATIV Sent. nithink 19:07 ERYTHROCYTE SEDIMENTATION RATE Sent. nithink 19:07 Liver Profile Sent. jmk 19:07 BMP Sent. jmk 19:07 CBC with Diff Sent. jmk 19:08 Patient visited by Mayito Resendez,RN. jmk 19:08 Inserted saline lock: 20 gauge in left antecubital area. jmk 19:17 CT Head Without Contrast Returned. EDMS 19:53 Patient visited by Keri Dill,AGUS. rs3 20:04 Patient visited by Parul Barron. ajs 20:24 Patient moved to MRI ajs 20:25 Iris Ibarra is Hospitalizing Provider. br1 21:45 Patient visited by Parul Barron. ajs 21:45 EKG done. (by ED staff). Reviewed by Cm Raymond MD. ajs 21:48 -MRI-Brain without Returned. EDMS 21:48 -MRA-Brain without contrast Returned. EDMS 21:54 Patient moved to Admit Hold sls1 21:58 Patient moved to Ultrasound hgl 22:06 Patient moved to Admit Hold sls1 22:26 Pt greeted and oriented to ED. Patient advised of names of staff involved in care, ajs location of call olivares, wait times and NPO status. Patient has correct armband on for positive identification. Placed in gown. Bed in low position. Call light in reach. Side rails up X2. PT MOVED TO RM 18, FOR ADMIT HOLD STATUS, PT PLACED IN HOSPITAL BED. PT GIVEN HOSPITAL PANTS, SOCKS AND FRESH WARM BLANKETS. surveillance system monitor on. 22:27 Patient visited by Parul Barron. ajs 22:41 [facility] [place] Payment Agreement was scanned into [employer] and attached to record. zo 02/07 03:53 Duplex,carotid (complete) Returned. EDMS 08:55 MRI Spine,Cervical without con Returned. EDMS 09:53 T-Sheet-- Draft Copy was scanned into [employer] and attached to record. gb 09:56 Radiology Report was scanned into [employer] and attached to record. gb 10:33 Mariely Jacob is Referral Physician. sd1 15:22 ECG/EKG was scanned into [employer] and attached to record. gb 15:22 Radiology Report was scanned into [employer] and attached to record. gb 08/01 18:15 EKG-ADULT Returned. EDMS Administered Medications: 07/30 19:07 Drug: NS 0.9% 1000 ml Route: IV; Rate: 150 mL/hr; Site: left antecubital; jmk 19:07 Drug: Metoclopramide 10 mg [metoclopramide 5 mg/mL injection solution] Route: IV; Rate: jmk 40 mg/hr; Infused Over: 15 mins; Site: left antecubital; 20:12 Follow up: IV Status: Completed infusion rs3 20:12 Drug: ketorolac 30 mg [ketorolac 30 mg/mL (1 mL) injection solution (1 mL)] Route: IVP; rs3 Site: left antecubital; Order Results: Lab Order: CBC with Diff; SPEC'M 07/30/16 19:02 Test: WHITE BLOOD COUNT; Value: 8.8; Range: 4.0-10.0; Units: K/mm3; Status: F Test: RED BLOOD COUNT; Value: 4.25; Range: 4.00-5.40; Units: M/mm3; Status: F Test: HEMOGLOBIN; Value: 12.8; Range: 12.0-16.0; Units: g/dl; Status: F Test: HEMATOCRIT; Value: 37.8; Range: 36.0-47.0; Units: %; Status: F Test: MEAN CORPUSCULAR VOLUME; Value: 89.1; Range: 80.0-96.0; Units: fl; Status: F Test: MEAN CORPUSCULAR HEMOGLOBIN; Value: 30.2; Range: 27.0-33.0; Units: pg; Status: F Test: MEAN CORPUSCULAR HGB CONC; Value: 33.9; Range: 32.0-36.5; Units: g/dl; Status: F Test: RED CELL DISTRIBUTION WIDTH; Value: 11.8; Range: 11.5-14.5; Units: %; Status: F Test: PLATELET COUNT, AUTOMATED; Value: 244; Range: 150-450; Units: k/mm3; Status: F Test: NEUTROPHILS %; Value: 62.9; Range: 36.0-66.0; Units: %; Status: F Test: LYMPH %; Value: 30.5; Range: 24.0-44.0; Units: %; Status: F Test: MONO %; Value: 4.3; Range: 0.0-5.0; Units: %; Status: F Test: EOS %; Value: 0.6; Range: 0.0-3.0; Units: %; Status: F Test: BASO %; Value: 0.3; Range: 0.0-1.0; Units: %; Status: F Test: LARGE UNSTAINED CELL %; Value: 1.4; Range: 0.0-4.0; Units: %; Status: F Test: NEUTROPHILS #; Value: 5.5; Range: 1.8-7.7; Units: K/mm3; Status: F Test: LYMPH #; Value: 2.7; Range: 1.5-4.5; Units: K/mm3; Status: F Test: MONO #; Value: 0.4; Range: 0.0-0.8; Units: K/mm3; Status: F Test: EOS #; Value: 0.0; Range: 0.0-0.50; Units: K/mm3; Status: F Test: BASO #; Value: 0.0; Range: 0.0-0.2; Units: K/mm3; Status: F Test: LARGE UNSTAINED CELL #; Value: 0.1; Range: 0.0-0.4; Units: K/mm3; Status: F Lab Order: [facility]; SPEC'M 07/30/16 19:02 Test: GLUCOSE, FASTING; Value: 91; Range: 70-105; Units: MG/DL; Status: F Test: BLOOD UREA NITROGEN; Value: 16; Range: 7-18; Units: MG/DL; Status: F Test: CREATININE FOR GFR; Value: 0.91; Range: 0.55-1.02; Units: MG/DL; Status: F Test: GLOMERULAR FILTRATION RATE; Value: > 60.0; Range: >51; Status: F Test: SODIUM LEVEL; Value: 141; Range: 136-145; Units: MEQ/L; Status: F Test: POTASSIUM SERUM; Value: 3.5; Range: 3.5-5.1; Units: MEQ/L; Status: F Test: CHLORIDE LEVEL; Value: 106; Range: 98-107; Units: MEQ/L; Status: F Test: CARBON DIOXIDE LEVEL; Value: 28; Range: 21-32; Units: MEQ/L; Status: F Test: ANION GAP; Value: 7; Range: 8-16; Abnormal: Below low normal; Units: MEQ/L; Status: F Test: CALCIUM LEVEL; Value: 8.8; Range: 8.5-10.1; Units: MG/DL; Status: F Test Note: ; Units are mL/min/1.73 m2 Chronic Kidney Disease Staging per NKF: Stage I & II GFR >=60 Normal to Mildly Decreased Stage III GFR 30-59 Moderately Decreased Stage IV GFR 15-29 Severely Decreased Stage V GFR <15 Very Little GFR Left ESRD GFR <15 on CLEARANCE DIVER Lab Order: Liver Profile; [facility] 19:02 Test: AST/SGOT; Value: 15; Range: 15-37; Units: U/L; Status: F Test: ALT/SGPT; Value: 23; Range: 12-78; Units: U/L; Status: F Test: ALKALINE PHOSPHATASE; Value: 64; Range: 45-117; Units: U/L; Status: F Test: BILIRUBIN,TOTAL; Value: 0.3; Range: 0.2-1.0; Units: MG/DL; Status: F Test: BILIRUBIN,DIRECT; Value: < 0.1; Range: 0.0-0.2; Units: MG/DL; Status: F Test: TOTAL PROTEIN; Value: 7.1; Range: 6.4-8.2; Units: GM/DL; Status: F Test: ALBUMIN; Value: 3.9; Range: 3.2-5.2; Units: GM/DL; Status: F Test: ALBUMIN/GLOBULIN RATIO; Value: 1.22; Range: 1.00-1.93; Status: F Lab Order: ERYTHROCYTE SEDIMENTATION RATE; 07/30/16 19:02 Test: ERYTHROCYTE SEDIMENTATION RATE; Value: 14; Range: 0-30; Units: mm/hr; Status: F Lab Order: C REACTIVE PROTEIN QUANTITATIV; 07/30/16 19:02 Test: C REACTIVE PROTEIN QUANTITATIV; Value: < 0.30; Range: 0.00-0.30; Units: MG/DL; Status: F Lab Order: THYROID PROFILE; [facility]07/[facility] 06:06 Test: T UPTAKE; Value: 32; Range: 30-39; Units: %; Status: F Test: THYROXINE (T4); Value: 8.5; Range: 4.5-12.0; Units: UG/DL; Status: F Test: FREE THYROXINE INDEX; Value: 2.7; Range: 1.3-4.8; Units: %; Status: F Test: THYROID STIMULATING HORMONE; Value: 2.240; Range: 0.358-3.740; Units: uIU/ML; Status: F Lab Order: COMPLETE BLOOD COUNT; SPEC07/31/16 06:06 Test: WHITE BLOOD COUNT; Value: 6.5; Range: 4.0-10.0; Units: K/mm3; Status: F Test: RED BLOOD COUNT; Value: 3.98; Range: 4.00-5.40; Abnormal: Below low normal; Units: M/mm3; Status: F Test: HEMOGLOBIN; Value: 12.3; Range: 12.0-16.0; Units: g/dl; Status: F Test: HEMATOCRIT; Value: 35.5; Range: 36.0-47.0; Abnormal: Below low normal; Units: %; Status: F Test: MEAN CORPUSCULAR VOLUME; Value: 89.1; Range: 80.0-96.0; Units: fl; Status: F Test: MEAN CORPUSCULAR HEMOGLOBIN; Value: 30.8; Range: 27.0-33.0; Units: pg; Status: F Test: MEAN CORPUSCULAR HGB CONC; Value: 34.6; Range: 32.0-36.5; Units: g/dl; Status: F Test: RED CELL DISTRIBUTION WIDTH; Value: 11.8; Range: 11.5-14.5; Units: %; Status: F Test: PLATELET COUNT, AUTOMATED; Value: 215; Range: 150-450; Units: k/mm3; Status: F Lab Order: BASIC METABOLIC PROFILE; 07/31/16 06:06 Test: GLUCOSE, FASTING; Value: 93; Range: 70-105; Units: MG/DL; Status: F Test: BLOOD UREA NITROGEN; Value: 17; Range: 7-18; Units: MG/DL; Status: F Test: CREATININE FOR GFR; Value: 0.86; Range: 0.55-1.02; Units: MG/DL; Status: F Test: GLOMERULAR FILTRATION RATE; Value: > 60.0; Range: >51; Status: F Test: SODIUM LEVEL; Value: 144; Range: 136-145; Units: MEQ/L; Status: F Test: POTASSIUM SERUM; Value: 4.4; Range: 3.5-5.1; Abnormal: Delta; Units: MEQ/L; Status: F Test: CHLORIDE LEVEL; Value: 110; Range: 98-107; Abnormal: Above high normal; Units: MEQ/L; Status: F Test: CARBON DIOXIDE LEVEL; Value: 27; Range: 21-32; Units: MEQ/L; Status: F Test: ANION GAP; Value: 7; Range: 8-16; Abnormal: Below low normal; Units: MEQ/L; Status: F Test: CALCIUM LEVEL; Value: 8.6; Range: 8.5-10.1; Units: MG/DL; Status: F Test Note: ; Units are mL/min/1.73 m2 Chronic Kidney Disease Staging per NKF: Stage I & II GFR >=60 Normal to Mildly Decreased Stage III GFR 30-59 Moderately Decreased Stage IV GFR 15-29 Severely Decreased Stage V GFR <15 Very Little GFR Left ESRD GFR <15 on CLEARANCE DIVER Lab Order: MAGNESIUM LEVEL; SPEC07/31/16 06:06 Test: MAGNESIUM LEVEL; Value: 2.1; Range: 1.8-2.4; Units: MG/DL; Status: F Lab Order: CARDIAC MARKER PANEL; [facility]07/31/16 06:06 Test: CPK CREATINE PHOSPHOKINASE; Value: 90; Range: 26-192; Units: U/L; Status: F Test: CK-MB VALUE MASS; Value: 1.1; Range: 0.0-3.6; Units: NG/ML; Status: F Test: MB/CK RELATIVE INDEX; Value: 1.22; Range: < OR =4; Status: F Test: TROPONIN I; Value: < 0.02; Range: < 0.10; Units: NG/ML; Status: F Test Note: ; DIAGNOSIS CRITERIA MMB ng/ml Relative Index (RI) NON-AMI < or = 5 N/A KIRBY ZONE > 5 < or = 4 AMI > 5 > 4 Lab Order: CARDIAC MARKER PANEL; SPEC07/30/16 19:02 Test: CPK CREATINE PHOSPHOKINASE; Value: 119; Range: 26-192; Units: U/L; Status: F Test: CK-MB VALUE MASS; Value: 1.8; Range: 0.0-3.6; Units: NG/ML; Status: F Test: MB/CK RELATIVE INDEX; Value: 1.51; Range: < OR =4; Status: F Test: TROPONIN I; Value: < 0.02; Range: < 0.10; Units: NG/ML; Status: F Test Note: ; DIAGNOSIS CRITERIA MMB ng/ml Relative Index (RI) NON-AMI < or = 5 N/A KIRBY ZONE > 5 < or = 4 AMI > 5 > 4 Lab Order: CARDIAC RISK PROFILE; SPEC07/31/16 06:06 Test: TRIGLYCERIDES LEVEL; Value: 185; Range: <150; Abnormal: Above high normal; Units: MG/DL; Status: F Test: CHOLESTEROL LEVEL; Value: 212; Range: <200; Abnormal: Above high normal; Units: MG/DL; Status: F Test: HDL CHOLESTEROL; Value: 53; Range: >40; Units: MG/DL; Status: F Test: LDL CHOLESTEROL; Value: 122.0; Range: <100; Abnormal: Above high normal; Units: MG/DL; Status: F Test: NON-HDL-C; Value: 159; Units: MG/DL; Status: F Test: CHOLESTEROL RISK RATIO; Value: 4.000; Range: <5; Status: F Radiology Order: CT Head Without Contrast Test: CT Head Without Contrast REASON FOR EXAMINATION: CVA >4.5hrs; ; CLINICAL HISTORY: CVA.; TECHNIQUE: Multiple axial brain CT scan sections were obtained from base to vertex without contrast a; dministration.; COMMENTS:; The study shows normal configuration of sella turcica. There are no intra or extra-axial collections.; There is no mass effect or midline shift. There is no evidence of hematoma formation. No hydrocephal; us is present. No abnormal calcifications are noted.; No significant abnormalities are seen either in the posterior fossa or supratentorial compartment.; The sinuses and mastoid air cells are patent.; IMPRESSION:; No evidence of acute intracranial pathology. Consider follow up with MRI/diffusion as clinically war; ranted.; Thank you for your kind referral of this patient.; ; Radiology Order: -MRA-Brain without contrast Test: -MRA-Brain without contrast REASON FOR EXAMINATION: CVA >4.5hrs; ; MRA of the brain.; Comparison: MRI, 07/30/2016.; Clinical history: possible stroke.; Technique: [id number] MRA images of the brain were obtained without administration of contrast. 3; -D MIP images were also obtained.; Findings: The vascular structures extending from the distal carotid and vertebrobasilar arterial syst; ems, through the tribal of [place], demonstrate normal caliber and contour. There is no evidence of an; eurysm, stenosis, or thrombosis.; Impression: Unremarkable MRA examination of the brain.; ; Radiology Order: -MRI-Brain without Test: -MRI-Brain without REASON FOR EXAMINATION: CVA >4.5hrs; ; MRI of the brain; Clinical history: possible stroke.; Comparison: 07/30/2016.; Technique: Multiecho multiplanar MRI images of the brain were obtained without administration of cont; rast. Diffusion weighted images with ADC mapping was also obtained.; Findings:; The ventricles and sulci are symmetric bilaterally. The brain parenchyma demonstrates uniform and nor; mal signal on all sequences. There is no midline shift, mass effect, or extra-axial fluid collection.; The midline intracranial structures do not demonstrate any gross abnormalities. The cervical cranial; junction is intact. The orbits are unremarkable. The visualized paranasal sinuses and mastoid air ce; lls are clear. The osseous structures and superficial soft tissues are unremarkable. 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; : 1965 Requested By: CM Ruiz; Order Number: [id number] Reading MD: Malini Ramirez; Measurements; Intervals [place]; Rate: 65 P: -12; W[place]: 140 QRS: -8; QRSD: 96 T: 6; QT: 406; QTc: 422; Interpretive Statements; SINUS RHYTHM; PRWP; NSTTW ABNORMALITY; Electronically Signed On 08-01-2016 17:36:09 EST by Malini Ramirez; Radiology Order: Duplex,carotid (complete) Test: Duplex,carotid (complete) REASON FOR EXAMINATION: TIA; Clinical: Transient ischemic attacks .; ; Technique: Kirby scale and color Doppler evaluation using linear high frequency; transducer; ; Findings:; Two-dimensional kirby scale and color images demonstrate normal arterial lumen; with laminar flow and no appreciable narrowing. Color Doppler interrogation; demonstrates normal arterial wave patterns and velocities with no significant; spectral broadening. Normal flow direction is appreciated in the bilateral; vertebral arteries.; ; RIGHT (cm/s) LEFT (cm/s); ; ICA peak systolic velocity 71.2 69.5; ICA diastolic velocity 28.3 36.2; ECA peak systolic velocity 90.5 63.6; CCA peak systolic velocity 111.1 85.6; ICA/CCA ratio 0.6 0.8; ; Impression:; No hemodynamically significant areas of narrowing or stenosis appreciated.; Based on set standards narrowing falls within the normal range.; ; ; Signed by; Jose Haynes MD 07/31/2016 03:28 A; Radiology Order: MRI Spine,Cervical without con Test: MRI Spine,Cervical without con REASON FOR EXAMINATION: headache; MRI CERVICAL SPINE WITHOUT CONTRAST:; ; HISTORY: Headache.; ; A small central disc protrusion is present at the C2-3 level. There is minimal; effacement of the thecal sac without spinal cord compression. The C2 neural; foramina are patent.; ; A small right paracentral disc protrusion is present at the C3-4 level. There is; minimal effacement of the thecal sac without spinal cord compression. Uncinate; process hypertrophy is present on the left. This produces minimal narrowing of; the left C3 neural foramen. The right C3 neural foramen is patent.; ; A disc bulge is present at the C4-5 level. There is minimal effacement of the; thecal sac without spinal cord compression. The C4 neural foramina are patent.; ; ; A disc bulge with associated osteophyte formation is present at the C5-6 level.; There is mild effacement of the thecal sac without spinal cord compression.; Bilateral uncinate process hypertrophy is present. This produces minimal and; mild narrowing of the right and left C5 neural foramina respectively.; ; A disc bulge and small left paracentral disc protrusion are present at the C6-7; level. There is mild effacement of the thecal sac without spinal cord; compression. Uncinate process hypertrophy is present on the left. This produces; mild narrowing of the left C6 neural foramen. The right C6 neural foramen is; patent.; ; There is no other disc bulge or herniation. The remaining neural foramina are; patent. The spinal cord is normal in signal intensity. There is no intradural; extramedullary lesion. The C5-6 intervertebral disc is decreased in height; consistent with disc degeneration. Normal signal intensity is present in the; cervical vertebral bodies.; ; IMPRESSION:; ; There is cervical spondylosis at the C2-3 through C6-7 levels without spinal cord; compression.; ; ; Signed by; Jose Luis Raines MD 07/31/2016 08:36 A; Outcome: 20:25 Decision to Hospitalize by Provider. br1 07/31 10:34 Discharge ordered by Provider. sd1 10:35 Patient left the ED. sandro Signatures: Dispatcher [employer] EDMS Malini Ramirez MD MD sd1 Jacque Parra RN Mayito ArndtRN RN Gale Michelle, Marjorie Bran Brian, MD MD br1 Porsha Francis RN RN Keri Rivera RN RN rs3 Sherrell Tracey, PLANT UTILITIES ENGINEER PLANT UTILITIES ENGINEER ct3 Parul Barron Shannon, RN RN sls1 Asad Brewer EmilyRN AGUS pena Corrections: (The following items were deleted from the chart) 07/30 20:13 20:12 Reassessment: Patient appears in no apparent distress at this time. Patient rs3 states feeling better. Patient states symptoms have improved. rs3 20:13 20:12 Pain: Denies pain. rs3 rs3 Chart Complete MTDD
--- NOTE | 2016-08-02 11:35 | EDDOCDS ---
Physician Documentation [facility] Name: Yazmin Beatty Age: 50 yrs Sex: Female : 1965 Arrival Date: 07/30/2016 Time: 17:13 Bed Admit Hold Private MD: Mariely Jacob NP Disposition: 07/31/16 10:34 Discharged to Home/Self Care. Impression: Headache. - Condition is Stable. - Medication Reconciliation, Local Pharmacy Hours form. - Follow up: Mariely Jacob; When: 1 - 2 days. - Problem is new. - Symptoms have improved. Historical: - Allergies: Demerol (Hives); PENICILLINS (Rash); SULFA (SULFONAMIDES) (Rash); - Home Meds: 1. lisinopril 30 mg Oral tab 1 tab once daily 2. Effexor 150 mg Oral nightly 3. Dexilant 20mg oral 1 cap nightly - PMHx: Depression; Hypercholesterolemia; Hypertension; GERD; - PSHx: D & C; (1986); Hysterectomy (1995); C section; - Social history: No barriers to communication noted, The patient speaks fluent Korean, Speaks appropriately for age, Smoking status: Patient states was never smoker of tobacco. - Family history: Not pertinent. - : The pt / caregiver states he / she is not on anticoagulants. Home medication list is obtained from the patient. - Exposure Risk Screening:: None identified. 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 2 in. (157.48 cm) (R); Pain 6/10; 20:04 BP 175 / 96; Pulse 70; Resp 18; Temp 98.6; Pulse Ox 97% ; Pain 5/10; ajs 22:36 BP 135 / 75 (auto/); rs3 22:37 Pulse 76 MON; Pulse Ox 98% ; rs3 22:50 BP 120 / 58 (auto/); rs3 23:01 Pulse 70 MON; rs3 17:15 Body Mass Index 28.35 (70.31 kg, 157.48 cm) ct3 Visual Acuity: 18:50 Left Eye Visual acuity 20/15, ; Right Eye Visual acuity 20/15, ; Both Eyes Visual jmk acuity 20/15; Without Lenses; MDM: 18:27 IV Saline Lock ordered. br1 18:28 NS 0.9% 1000 ml IV at 150 mL/hr continuous ordered. br1 18:28 Metoclopramide 10 mg IV at 40 mg/hr once over 15 mins ordered. br1 18:28 CBC with Diff Ordered. EDMS 18:28 BMP Ordered. EDMS 18:28 Liver Profile Ordered. EDMS 18:28 Visual Acuity ordered. br1 18:29 CT Head Without Contrast Ordered. EDMS 18:36 ERYTHROCYTE SEDIMENTATION RATE Ordered. EDMS 18:36 C REACTIVE PROTEIN QUANTITATIV Ordered. EDMS 19:32 CBC with Diff Reviewed. br1 19:32 CT Head Without Contrast Reviewed. br1 19:56 BMP Reviewed. br1 19:56 Liver Profile Reviewed. br1 19:56 C REACTIVE PROTEIN QUANTITATIV Reviewed. br1 19:59 MRI Screening Tool - Place on chart, inform RN ordered. br1 19:59 ketorolac 30 mg IVP once ordered. br1 20:00 -MRA-Brain without contrast Ordered. EDMS 20:00 -MRI-Brain without Ordered. EDMS 20:00 BED REQUEST+ADM ordered. EDMS 20:04 MRI Screening Tool - Place on chart, inform RN complete. rs3 20:23 ECG WITH READING ER PHYS+CARDIAG ordered. EDMS 21:38 THYROID PROFILE Ordered. EDMS 21:38 COMPLETE BLOOD COUNT Ordered. EDMS 21:38 BASIC METABOLIC PROFILE Ordered. EDMS 21:38 MAGNESIUM LEVEL Ordered. EDMS 21:39 Duplex,carotid (complete) Ordered. EDMS 21:40 ECHOCARD,DOPPLER/COLOR FLOW ordered. EDMS 21:43 PHYSICAL THERAPY EVAL & TREAT ordered. EDMS 21:43 Admission / Observation Status ordered. EDMS 21:43 LOW FAT LOW CHOLESTEROL DIET ordered. EDMS 22:01 CARDIAC MARKER PANEL Ordered. EDMS 22:12 CARDIAC RISK PROFILE Ordered. EDMS 22:41 [facility] Payment Agreement was scanned into [employer] and attached to record. zo 22:41 Financial registration complete. zo 23:47 BMP Reviewed. br1 23:47 CBC with Diff Reviewed. br1 23:47 Liver Profile Reviewed. br1 23:47 ERYTHROCYTE SEDIMENTATION RATE Reviewed. br1 23:47 C REACTIVE PROTEIN QUANTITATIV Reviewed. br1 23:47 CARDIAC MARKER PANEL Reviewed. br1 23:47 -MRA-Brain without contrast Reviewed. br1 23:47 -MRI-Brain without Reviewed. br1 0207 06:29 MRI Spine,Cervical without con Ordered. EDMS 09:16 Admission / Observation Status ordered. EDMS 09:53 T-Sheet-- Draft Copy was scanned into [employer] and attached to record. gb 09:56 Radiology Report was scanned into [employer] and attached to record. gb 10:35 Disposition: patient was admitted to hospital but held in ED - I was asked to put D/C sd1 into [employer] to remove from system - patient was D/C by Hospitalist service. 15:22 ECG/EKG was scanned into [employer] and attached to record. gb 15:22 Radiology Report was scanned into [employer] and attached to record. gb Administered Medications: 07/30 19:07 Drug: NS 0.9% 1000 ml Route: IV; Rate: 150 mL/hr; Site: left antecubital; k 19:07 Drug: Metoclopramide 10 mg [metoclopramide 5 mg/mL injection solution] Route: IV; Rate: jmk 40 mg/hr; Infused Over: 15 mins; Site: left antecubital; 20:12 Follow up: IV Status: Completed infusion rs3 20:12 Drug: ketorolac 30 mg [ketorolac 30 mg/mL (1 mL) injection solution (1 mL)] Route: IVP; rs3 Site: left antecubital; Signatures: Dispatcher [employer] EDVA Malini Ramirez MD MD sdJacque Lucas RN Mayito Arndt RN RN jmk Gale James, Reg Reg Marjorie Green Brian, MD MD br1 Keri Dill RN RN rs3 Barbara Varghese RN RN ead The chart was reviewed and I authenticate all verbal orders and agree with the evaluation and treatment provided.Corrections: (The following items were deleted from the chart) 18:35 18:29 ERYTHROCYTE SEDIMENTATION RATE+LAB ordered. EDVA EDMS 18:35 18:29 C REACTIVE PROTEIN QUANTITATIV+LAB ordered. EDMS EDMS 18:51 18:28 Product Analyst/Pulse Ox/q 30 min VS ordered. br1 br1 22:11 22:01 CARDIAC MARKER PANEL ordered. EDMS EDMS 22:12 21:41 CARDIAC RISK PROFILE ordered. EDMS EDMS Attachments: 22:41 [facility] Payment Agreement zo 07/31 09:53 T-Sheet-- Draft Copy gb 15:22 ECG/EKG gb Chart Complete MTDD
--- NOTE | 2016-08-02 11:35 | EDDOCDS ---
Physician Documentation [facility] Name: Yazmin Beatty Age: 50 yrs Sex: Female : 1965 Arrival Date: 07/30/2016 Time: 17:13 Bed Admit Hold Private MD: Mariely Jacob NP Disposition: 07/31/16 10:34 Discharged to Home/Self Care. Impression: Headache. - Condition is Stable. - Medication Reconciliation, Local Pharmacy Hours form. - Follow up: Mariely Jacob; When: 1 - 2 days. - Problem is new. - Symptoms have improved. Historical: - Allergies: Demerol (Hives); PENICILLINS (Rash); SULFA (SULFONAMIDES) (Rash); - Home Meds: 1. lisinopril 30 mg Oral tab 1 tab once daily 2. Effexor 150 mg Oral nightly 3. Dexilant 20mg oral 1 cap nightly - PMHx: Depression; Hypercholesterolemia; Hypertension; GERD; - PSHx: D & C; (1986); Hysterectomy (1995); C section; - Social history: No barriers to communication noted, The patient speaks fluent Kazakh, Speaks appropriately for age, Smoking status: Patient states was never smoker of tobacco. - Family history: Not pertinent. - : The pt / caregiver states he / she is not on anticoagulants. Home medication list is obtained from the patient. - Exposure Risk Screening:: None identified. 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 2 in. (157.48 cm) (R); Pain 6/10; 20:04 BP 175 / 96; Pulse 70; Resp 18; Temp 98.6; Pulse Ox 97% ; Pain 5/10; ajs 22:36 BP 135 / 75 (auto/); rs3 22:37 Pulse 76 MON; Pulse Ox 98% ; rs3 22:50 BP 120 / 58 (auto/); rs3 23:01 Pulse 70 MON; rs3 17:15 Body Mass Index 28.35 (70.31 kg, 157.48 cm) ct3 Visual Acuity: 18:50 Left Eye Visual acuity 20/15, ; Right Eye Visual acuity 20/15, ; Both Eyes Visual jmk acuity 20/15; Without Lenses; MDM: 18:27 IV Saline Lock ordered. br1 18:28 NS 0.9% 1000 ml IV at 150 mL/hr continuous ordered. br1 18:28 Metoclopramide 10 mg IV at 40 mg/hr once over 15 mins ordered. br1 18:28 CBC with Diff Ordered. EDMS 18:28 BMP Ordered. EDMS 18:28 Liver Profile Ordered. EDMS 18:28 Visual Acuity ordered. br1 18:29 CT Head Without Contrast Ordered. EDMS 18:36 ERYTHROCYTE SEDIMENTATION RATE Ordered. EDMS 18:36 C REACTIVE PROTEIN QUANTITATIV Ordered. EDMS 19:32 CBC with Diff Reviewed. br1 19:32 CT Head Without Contrast Reviewed. br1 19:56 BMP Reviewed. br1 19:56 Liver Profile Reviewed. br1 19:56 C REACTIVE PROTEIN QUANTITATIV Reviewed. br1 19:59 MRI Screening Tool - Place on chart, inform RN ordered. br1 19:59 ketorolac 30 mg IVP once ordered. br1 20:00 -MRA-Brain without contrast Ordered. EDMS 20:00 -MRI-Brain without Ordered. EDMS 20:00 BED REQUEST+ADM ordered. EDMS 20:04 MRI Screening Tool - Place on chart, inform RN complete. rs3 20:23 ECG WITH READING ER PHYS+CARDIAG ordered. EDMS 21:38 THYROID PROFILE Ordered. EDMS 21:38 COMPLETE BLOOD COUNT Ordered. EDMS 21:38 BASIC METABOLIC PROFILE Ordered. EDMS 21:38 MAGNESIUM LEVEL Ordered. EDMS 21:39 Duplex,carotid (complete) Ordered. EDMS 21:40 ECHOCARD,DOPPLER/COLOR FLOW ordered. EDMS 21:43 PHYSICAL THERAPY EVAL & TREAT ordered. EDMS 21:43 Admission / Observation Status ordered. EDMS 21:43 LOW FAT LOW CHOLESTEROL DIET ordered. EDMS 22:01 CARDIAC MARKER PANEL Ordered. EDMS 22:12 CARDIAC RISK PROFILE Ordered. EDMS 22:41 [facility] Payment Agreement was scanned into [employer] and attached to record. zo 22:41 Financial registration complete. zo 23:47 BMP Reviewed. br1 23:47 CBC with Diff Reviewed. br1 23:47 Liver Profile Reviewed. br1 23:47 ERYTHROCYTE SEDIMENTATION RATE Reviewed. br1 23:47 C REACTIVE PROTEIN QUANTITATIV Reviewed. br1 23:47 CARDIAC MARKER PANEL Reviewed. br1 23:47 -MRA-Brain without contrast Reviewed. br1 23:47 -MRI-Brain without Reviewed. br1 0207 06:29 MRI Spine,Cervical without con Ordered. EDMS 09:16 Admission / Observation Status ordered. EDMS 09:53 T-Sheet-- Draft Copy was scanned into [employer] and attached to record. gb 09:56 Radiology Report was scanned into [employer] and attached to record. gb 10:35 Disposition: patient was admitted to hospital but held in ED - I was asked to put D/C sd1 into [employer] to remove from system - patient was D/C by Hospitalist service. 15:22 ECG/EKG was scanned into [employer] and attached to record. gb 15:22 Radiology Report was scanned into [employer] and attached to record. gb Administered Medications: 07/30 19:07 Drug: NS 0.9% 1000 ml Route: IV; Rate: 150 mL/hr; Site: left antecubital; k 19:07 Drug: Metoclopramide 10 mg [metoclopramide 5 mg/mL injection solution] Route: IV; Rate: jmk 40 mg/hr; Infused Over: 15 mins; Site: left antecubital; 20:12 Follow up: IV Status: Completed infusion rs3 20:12 Drug: ketorolac 30 mg [ketorolac 30 mg/mL (1 mL) injection solution (1 mL)] Route: IVP; rs3 Site: left antecubital; Signatures: Dispatcher [employer] EDAL Malini Ramirez MD MD sdJacque Lucas RN Mayito Anrdt RN RN jmk Gale James, Reg Reg Marjorie Green Brian, MD MD br1 Keri Dill RN RN rs3 Barbara Varghese RN RN ead The chart was reviewed and I authenticate all verbal orders and agree with the evaluation and treatment provided.Corrections: (The following items were deleted from the chart) 18:35 18:29 ERYTHROCYTE SEDIMENTATION RATE+LAB ordered. EDAL EDMS 18:35 18:29 C REACTIVE PROTEIN QUANTITATIV+LAB ordered. EDMS EDMS 18:51 18:28 Talent Coordinator/Pulse Ox/q 30 min VS ordered. br1 br1 22:11 22:01 CARDIAC MARKER PANEL ordered. EDMS EDMS 22:12 21:41 CARDIAC RISK PROFILE ordered. EDMS EDMS Attachments: 22:41 [facility] Payment Agreement zo 07/31 09:53 T-Sheet-- Draft Copy gb 15:22 ECG/EKG gb Chart Complete MTDD
[2016-08-05] MEDS ORDERED: VITAMIN D 50,000 UNITS CAPSULE (ERGOCALCIFEROL 1.25MG) PO SCH (09:00)
== END 2016-07-31 10:27 | disposition home or self-care (01) ==
LOC: M ED 17:13 → M ED INP 17:14 → UNDOADMIN 21:37 → M ED INP 21:37 → UNDODISIN 07-31 10:27
PROVIDERS: ADMIT Hospitalist; ATTEND Family Medicine
DX: R51 Headache (principal); R20.2 Paresthesia of skin; I10 Essential (primary) hypertension; M47.812 Spondylosis without myelopathy or radiculopathy, cervical region; R11.0 Nausea; H93.12 Tinnitus, left ear; K21.9 Gastro-esophageal reflux disease without esophagitis; E78.5 Hyperlipidemia, unspecified; F32.9 Major depressive disorder, single episode, unspecified; Z91.040 Latex allergy status; Z88.2 Allergy status to sulfonamides; Z88.8 Allergy status to other drugs, medicaments and biological substances; Z88.0 Allergy status to penicillin; Z79.899 Other long term (current) drug therapy
CPT/HCPCS: 36415; 70450; 70544; 70551; 72141; 80048; 80061; 80076; 82550; 82553; 83735; 84436; 84443; 84479; 85025; 85027; 85652; 86140; 93005; 93880; 96365; 96375; 96376; 99284; J1885; J2765

== ENCOUNTER → 2017-09-16 | Outpatient (CLI) | payer BC ==
[2017-09-16 09:10] LABS: ALBUMIN 3.8 GM/DL (3.2-5.2); ALBUMIN/GLOBULIN RATIO 1.23 (1.00-1.93); ALKALINE PHOSPHATASE 64 U/L (45-117); ALT/SGPT 27 U/L (12-78); ANION GAP 6 MEQ/L (8-16); AST/SGOT 15 U/L (7-37); BILIRUBIN,TOTAL 0.5 MG/DL (0.2-1.0); BLOOD UREA NITROGEN 25 MG/DL (7-18); CALCIUM LEVEL 9.3 MG/DL (8.5-10.1); CARBON DIOXIDE LEVEL 27 MEQ/L (21-32); CHLORIDE LEVEL 106 MEQ/L (98-107); CHOLESTEROL LEVEL 251 MG/DL (<200); CHOLESTEROL RISK RATIO 4.921 (<5); CREATININE FOR GFR 0.75 MG/DL (0.55-1.30); GLOMERULAR FILTRATION RATE > 60.0 (>51); GLUCOSE, FASTING 92 MG/DL (70-100); HDL CHOLESTEROL 51 MG/DL (>40); NON-HDL-C 200 MG/DL; POTASSIUM SERUM 4.4 MEQ/L (3.5-5.1); SODIUM LEVEL 139 MEQ/L (136-145); TOTAL PROTEIN 6.9 GM/DL (6.4-8.2); TRIGLYCERIDES LEVEL 235 MG/DL (<150)
[2017-09-16 10:23] LABS: TOTAL 25(OH) VITAMIN D 66.9 NG/ML (30.0-100.0)
== END ==
LOC: M LAB 08:15
DX: I10 Essential (primary) hypertension (principal); E78.2 Mixed hyperlipidemia; K21.0 Gastro-esophageal reflux disease with esophagitis; E55.9 Vitamin D deficiency, unspecified
CPT/HCPCS: 83735

== ENCOUNTER → 2017-09-26 | Outpatient (CLI) | payer BC ==
[2017-09-26 10:05] LABS: IMMUNOGLOBULIN A 94.2 MG/DL (70-400)
[2017-09-28 00:07] LABS: ENDOMYSIAL ABY IgA Negative (Negative); TISSUE TRANSGLUTAMINASE IgA <2 U/mL (0-3)
[2017-09-28 00:07] LABS: TISSUE TRANSGLUTAMINASE IgG <2 U/mL (0-5)
== END ==
LOC: M LAB 08:22
DX: R13.10 Dysphagia, unspecified (principal); K58.9 Irritable bowel syndrome, unspecified
CPT/HCPCS: 86255

== ENCOUNTER → 2018-03-19 | Outpatient (CLI) | payer BC | LOC: M RAD 15:36 | DX: T84.84XA Pain due to internal orthopedic prosthetic devices, implants and grafts, initial encounter (principal); M25.772 Osteophyte, left ankle; Z98.1 Arthrodesis status; Y92.89 Other specified places as the place of occurrence of the external cause; Y93.89 Activity, other specified; X58.XXXA Exposure to other specified factors, initial encounter; Y99.8 Other external cause status | CPT/HCPCS: 73700 ==

== ENCOUNTER → 2018-04-21 | Outpatient (CLI) | payer BC ==
[2018-04-21 15:23] LABS: ANION GAP 7 MEQ/L (8-16); BLOOD UREA NITROGEN 19 MG/DL (7-18); CALCIUM LEVEL 9.2 MG/DL (8.5-10.1); CARBON DIOXIDE LEVEL 25 MEQ/L (21-32); CHLORIDE LEVEL 107 MEQ/L (98-107); CREATININE FOR GFR 1.05 MG/DL (0.55-1.30); GLOMERULAR FILTRATION RATE 58.4 (>51); GLUCOSE, FASTING 93 MG/DL (70-100); POTASSIUM SERUM 4.3 MEQ/L (3.5-5.1); SODIUM LEVEL 139 MEQ/L (136-145)
== END ==
LOC: M LAB 14:12
DX: Z01.810 Encounter for preprocedural cardiovascular examination (principal); Z01.812 Encounter for preprocedural laboratory examination; T84.84XA Pain due to internal orthopedic prosthetic devices, implants and grafts, initial encounter
CPT/HCPCS: 93005

== ENCOUNTER 2019-09-14 09:29 | Emergency (ER) | payer BC ==
[~2019-09-14] VITALS: Ht 157.5 cm; Wt 70.5 kg
[~2019-09-14 09:29] MED LIST: ATOR1TAB19 PO; DEXI30CA2 PO; IBUPOTC PO; LISI-672 PO; VENL150C43 PO; VITA50005 PO
[2019-09-14 09:30] VITALS: BP 141/86
[2019-09-14] MEDS ORDERED: ESCI10TA2 (09:37)
[2019-09-14] MEDS ORDERED: OCUF0.25 OS (10:11)
[2019-09-14] MEDS ORDERED: FLUORESCEIN OPHTH 1 MG STRIP OS ONE (10:15)
[2019-09-14] MEDS ORDERED: TETRACAINE 0.5% OPHTH SOLN 4ML OS ONE (10:15)
== END 2019-09-14 10:17 | disposition home or self-care (01) ==
LOC: M ED 09:29
DX: H10.32 Unspecified acute conjunctivitis, left eye (principal); Z97.3 Presence of spectacles and contact lenses; I10 Essential (primary) hypertension; E78.5 Hyperlipidemia, unspecified; K21.9 Gastro-esophageal reflux disease without esophagitis; K58.9 Irritable bowel syndrome, unspecified; F32.9 Major depressive disorder, single episode, unspecified; Z88.0 Allergy status to penicillin; Z88.2 Allergy status to sulfonamides; Z88.1 Allergy status to other antibiotic agents; Z88.8 Allergy status to other drugs, medicaments and biological substances; Z91.040 Latex allergy status; Z79.899 Other long term (current) drug therapy

== ENCOUNTER → 2020-08-11 | Outpatient (REF) ==
[~2020-08-11] MED LIST changes: +ESCI10TA16; -LISI-672 PO; +LISI30TA4 PO; +OCUF0.25 OS
== END ==
LOC: M LABSMTC 13:27
PROVIDERS: ATTEND Family Medicine
DX: Z11.52 Encounter for screening for COVID-19 (principal)

== ENCOUNTER → 2020-09-02 | Outpatient (CLI) | payer BC ==
[2020-09-02 11:15] LABS: ALBUMIN 3.9 GM/DL (3.2-5.2); ALT/SGPT 31 U/L (12-78); BILIRUBIN,TOTAL 0.5 MG/DL (0.2-1.0); BLOOD UREA NITROGEN 20 MG/DL (7-18); CALCIUM LEVEL 9.6 MG/DL (8.5-10.1); CARBON DIOXIDE LEVEL 30 MEQ/L (21-32); CHLORIDE LEVEL 106 MEQ/L (98-107); CHOLESTEROL LEVEL 269 MG/DL (<200); CHOLESTEROL RISK RATIO 4.203 (<5); CREATININE FOR GFR 0.83 MG/DL (0.55-1.30); GLOMERULAR FILTRATION RATE > 60.0 (>51); GLUCOSE, FASTING 85 MG/DL (70-100); HDL CHOLESTEROL 64 MG/DL (>40); LDL CHOLESTEROL 183 MG/DL (<100); MAGNESIUM LEVEL 2.2 MG/DL (1.8-2.4); NON-HDL-C 205 MG/DL; POTASSIUM SERUM 4.3 MEQ/L (3.5-5.1); SODIUM LEVEL 139 MEQ/L (136-145); TOTAL PROTEIN 6.7 GM/DL (6.4-8.2); TRIGLYCERIDES LEVEL 108 MG/DL (<150)
[2020-09-02 11:22] LABS: CREATININE, URINE 43.7 MG/DL; MALB URINE SIEMENS 6.3 MG/L; MAU/CREAT RATIO 14.4 MCG/MG (0.0-30.0)
[2020-09-02 17:36] LABS: TOTAL 25(OH) VITAMIN D 48.7 NG/ML (30.0-100.0)
[2020-09-02 17:37] LABS: FOLATE 12.1 NG/ML; VITAMIN B12 LEVEL 477 PG/ML
== END ==
LOC: M LAB 08:20
PROVIDERS: ATTEND Nurse Practitioner Family
DX: E78.2 Mixed hyperlipidemia (principal); I10 Essential (primary) hypertension; K21.9 Gastro-esophageal reflux disease without esophagitis; E55.9 Vitamin D deficiency, unspecified

== ENCOUNTER → 2020-09-16 | Outpatient (CLI) | payer BC ==
--- NOTE | 2020-09-16 14:20 | REPMRS ---
Patient History The patient states she has not had a clinical breast exam in over a year. Family history of colorectal cancer at age 70 in mother. Reductions of both breasts, 2004. No Hormone Replacement Therapy Digital Woman Screen Mammo: September 16, 2020 - Exam #: [id number] Bilateral CC and MLO view(s) were taken. Technologist: Sofia Mera, Technologist Prior study comparison: September 03, 2013, bilateral digital mammo screening bilat, performed at [facility]. August 19, 2012, bilateral digital mammo screening bilat, performed at [facility]. April 18, 2011, bilateral bilat screen digital mammo, performed at [facility]. FINDINGS: The breast tissue is almost entirely fat. The Volpara volumetric breast density category is: A. There has been no change in the appearance of the mammogram from the prior studies. There is no interval development of dominant mass, architectural distortion, or grouped microcalcification typical of malignancy. 3-D tomosynthesis shows no additional findings. Assessment: BI-RADS/ACR category 1 mammogram. Negative Mammogram. Recommendation Routine screening mammogram of both breasts in 1 year (for women over age 40). This patient's [facility] Lifetime Breast Cancer RIsk is estimated at 7.8 %. This mammogram was interpreted with the aid of an FDA-approved computer-aided dectection system. Electronically Signed By: Fabian Martines MD 09/16/20 [id number]
--- NOTE | 2020-09-16 16:22 | DEXAMM ---
INDICATION: N95.1 POST MENOPAUSAL. COMPARISON: 05/07/2008. TECHNIQUE: Bone density was measured using dual-energy x-ray absorptiometry (DEXA). FINDINGS: AP SPINE L1-L4 BMD 1.176 g/cm2 Young Adult T-Score is -0.1 Age Matched Z-Score 0.7. LT FEMUR, TOTAL BMD 1.047 g/cm2 Young Adult T-Score 0.3 Age Matched Z-Score 1.0. LT NECK BMD 0.996 g/cm2 Young Adult T-Score -0.3 Age Matched Z-Score 0.7. RT FEMUR, TOTAL BMD 1.080 g/cm2 Young Adult T-Score 0.6 Age Matched Z-Score 1.3. RT NECK BMD 1.027 g/cm2 Young Adult T-Score -0.1 Age Matched Z-Score 1.0. IMPRESSION: There is normal bone density of the spine. There is normal bone density of the left hip. There is normal bone density of the right hip. The density of the spine has increased 6.9% since the initial exam on 05/07/2008. The density of the left hip has increased 4.3% since initial exam on 05/07/2008. The density of the right hip has increased 6.1% since the initial exam on 05/07/2008. FOLLOW-UP: Recommendation for the next bone density exam: 5 years. <Electronically signed by Barrett Kirby > 09/16/20 [id number]
== END ==
LOC: M WHC 13:29
PROVIDERS: ATTEND Nurse Practitioner Family
DX: Z12.31 Encounter for screening mammogram for malignant neoplasm of breast (principal); N95.1 Menopausal and female climacteric states; Z80.0 Family history of malignant neoplasm of digestive organs

== ENCOUNTER → 2021-06-26 | Outpatient (REF) ==
[2021-06-26 12:28] LABS: RSV AMPLIFICATION NEGATIVE (NEGATIVE)
== END ==
LOC: M LABSMTC 10:23
PROVIDERS: ATTEND Family Medicine
DX: Z11.52 Encounter for screening for COVID-19 (principal)

== ENCOUNTER → 2021-09-06 | Outpatient (CLI) | payer BC | LOC: M PLAIMG 15:04 | PROVIDERS: ATTEND Internal Medicine Hematology | DX: M19.041 Primary osteoarthritis, right hand (principal) ==

== ENCOUNTER → 2021-09-08 | Outpatient (CLI) | payer BC ==
[2021-09-08 07:43] LABS: HEMATOCRIT 36.9 % (36.0-47.0); HEMOGLOBIN 12.5 g/dl (12.0-15.5); MEAN CORPUSCULAR HGB CONC 33.9 g/dl (32.0-36.5); MEAN CORPUSCULAR VOLUME 88.7 fl (80.0-96.0); PLATELET COUNT, AUTOMATED 195 10^3/uL (150-450); RED BLOOD COUNT 4.16 10^6/uL (4.00-5.40); WHITE BLOOD COUNT 6.1 10^3/uL (4.0-10.0)
[2021-09-08 08:16] LABS: MALB URINE SIEMENS 8.5 MG/L
[2021-09-08 09:11] LABS: ALT/SGPT 34 U/L (12-78); BILIRUBIN,TOTAL 0.5 MG/DL (0.2-1.0); BLOOD UREA NITROGEN 19 MG/DL (7-18); CALCIUM LEVEL 9.6 MG/DL (8.5-10.1); CARBON DIOXIDE LEVEL 29 MEQ/L (21-32); CHLORIDE LEVEL 107 MEQ/L (98-107); CHOLESTEROL LEVEL 215 MG/DL (<200); CHOLESTEROL RISK RATIO 3.115 (<5); CREATININE FOR GFR 0.85 MG/DL (0.55-1.30); GLOMERULAR FILTRATION RATE > 60.0 (>51); GLUCOSE, FASTING 90 MG/DL (70-100); HDL CHOLESTEROL 69 MG/DL (>40); LDL CHOLESTEROL 132 MG/DL (<100); NON-HDL-C 146 MG/DL; POTASSIUM SERUM 4.1 MEQ/L (3.5-5.1); SODIUM LEVEL 141 MEQ/L (136-145); TOTAL PROTEIN 6.5 GM/DL (6.4-8.2); TRIGLYCERIDES LEVEL 71 MG/DL (<150)
[2021-09-08 09:12] LABS: TOTAL 25(OH) VITAMIN D 44.1 NG/ML (30.0-100.0)
== END ==
LOC: M LAB 06:56
PROVIDERS: ATTEND Internal Medicine Hematology
DX: E55.9 Vitamin D deficiency, unspecified (principal); I10 Essential (primary) hypertension; E78.2 Mixed hyperlipidemia

== ENCOUNTER → 2021-09-25 | Outpatient (CLI) | payer BC | LOC: M WHC 07:19 | PROVIDERS: ATTEND Internal Medicine Hematology | DX: Z12.31 Encounter for screening mammogram for malignant neoplasm of breast (principal) ==

== ENCOUNTER → 2022-07-18 | Outpatient (REF) ==
[2022-07-18 09:01] LABS: RSV AMPLIFICATION NEGATIVE (NEGATIVE)
== END ==
LOC: M EMP 07:51
PROVIDERS: ATTEND Family Medicine
DX: Z11.59 Encounter for screening for other viral diseases (principal)

== ENCOUNTER → 2022-11-16 | Outpatient (CLI) | payer BC ==
[2022-11-16 14:18] LABS: MEAN CORPUSCULAR HEMOGLOBIN 30.2 pg (27.0-33.0); MEAN CORPUSCULAR HGB CONC 33.3 g/dl (32.0-36.5); MEAN CORPUSCULAR VOLUME 90.7 fl (80.0-96.0); PLATELET COUNT, AUTOMATED 211 10^3/uL (150-450); RED BLOOD COUNT 3.97 10^6/uL (4.00-5.40); WHITE BLOOD COUNT 6.4 10^3/uL (4.0-10.0)
[2022-11-16 14:31] LABS: HEMOGLOBIN A1c 5.4 % (4.0-6.0)
[2022-11-16 14:45] LABS: CREATININE, URINE 16.5 MG/DL; MALB URINE SIEMENS < 3.0 MG/L; MAU/CREAT RATIO 18.1 MCG/MG (0.0-30.0)
[2022-11-16 14:46] LABS: ALBUMIN 3.8 G/DL (3.2-5.2); ALKALINE PHOSPHATASE 77 U/L (46-116); ALT/SGPT 32 U/L (7.0-40); AST/SGOT 20 U/L (<34); BILIRUBIN,TOTAL 0.5 MG/DL (0.3-1.2); BLOOD UREA NITROGEN 20 MG/DL (9-23); CALCIUM LEVEL 9.2 MG/DL (8.5-10.1); CARBON DIOXIDE LEVEL 30 MMOL/L (20-31); CHLORIDE LEVEL 105 MMOL/L (98-107); CHOLESTEROL LEVEL 184 MG/DL (<200); CHOLESTEROL RISK RATIO 2.94 (<5); CREATININE FOR GFR 0.75 MG/DL (0.55-1.30); GLOMERULAR FILTRATION RATE > 60.0 (>51); GLUCOSE, FASTING 89 MG/DL (60-100); HDL CHOLESTEROL 62.5 MG/DL (>40); LDL CHOLESTEROL 102.7 MG/DL (<100); NON-HDL-C 121.5 MG/DL; POTASSIUM SERUM 4.2 MMOL/L (3.5-5.1); SODIUM LEVEL 140 MMOL/L (136-145); TOTAL PROTEIN 6.1 G/DL (5.7-8.2); TRIGLYCERIDES LEVEL 94 MG/DL (<150)
[2022-11-16 14:47] LABS: C REACTIVE PROTEIN QUANTITATIV < 0.40 MG/DL (<1.0)
[2022-11-16 14:48] LABS: FREE T4 0.92 NG/DL (0.89-1.76); THYROID STIMULATING HORMONE 1.245 uIU/ML (0.55-4.78)
== END ==
LOC: M LAB 13:23
PROVIDERS: ATTEND Internal Medicine Hematology
DX: E78.2 Mixed hyperlipidemia (principal)

== ENCOUNTER → 2022-11-26 | Outpatient (REF) | LOC: M EMP 12:19 | PROVIDERS: ATTEND Family Medicine | DX: Z11.52 Encounter for screening for COVID-19 (principal) ==

== ENCOUNTER → 2022-12-14 | Outpatient (CLI) | payer BC | LOC: M WHC 07:25 | PROVIDERS: ATTEND Internal Medicine Hematology | DX: R10.11 Right upper quadrant pain (principal) ==

== ENCOUNTER 2023-02-10 10:07 | Emergency (ER) | payer BC ==
[~2023-02-10] VITALS: Ht 157.5 cm; Wt 62.7 kg
[2023-02-10 11:18] LABS: LIPASE 38 U/L (12-53)
[2023-02-10 11:20] LABS: ALBUMIN 4.3 G/DL (3.2-5.2); ALKALINE PHOSPHATASE 80 U/L (46-116); ALT/SGPT 17 U/L (7.0-40); AST/SGOT < 8 U/L (<34); BILIRUBIN,DIRECT 0.3 MG/DL (<0.4); BLOOD UREA NITROGEN 12 MG/DL (9-23); CALCIUM LEVEL 9.3 MG/DL (8.5-10.1); CARBON DIOXIDE LEVEL 24 MMOL/L (20-31); CHLORIDE LEVEL 96 MMOL/L (98-107); CREATININE FOR GFR 0.63 MG/DL (0.55-1.30); GLOMERULAR FILTRATION RATE > 60.0 (>51); GLUCOSE, FASTING 105 MG/DL (60-100); POTASSIUM SERUM 3.7 MMOL/L (3.5-5.1); SODIUM LEVEL 129 MMOL/L (136-145); TOTAL PROTEIN 7.4 G/DL (5.7-8.2)
[2023-02-10 11:23] LABS: THYROID STIMULATING HORMONE 1.956 uIU/ML (0.55-4.78)
[2023-02-10 11:42] LABS: BASO % 0.3 % (0.0-1.0); EOS % 0.2 % (0.0-3.0); HEMATOCRIT 42.9 % (36.0-47.0); LYMPH # 2.1 10^3/uL (1.5-5.0); MEAN CORPUSCULAR HEMOGLOBIN 29.8 pg (27.0-33.0); MEAN CORPUSCULAR VOLUME 85.1 fl (80.0-96.0); MONO % 9.4 % (2.0-8.0); NEUTROPHILS % 68.7 % (36.0-66.0); PLATELET COUNT, AUTOMATED 262 10^3/uL (150-450); RED BLOOD COUNT 5.04 10^6/uL (4.00-5.40); WHITE BLOOD COUNT 10.1 10^3/uL (4.0-10.0)
[2023-02-10 12:57] LABS: FREE T4 1.14 NG/DL (0.89-1.76)
[2023-02-10 14:00] VITALS: BP 161/86; TEMP 98.5; O2SAT 96
== END 2023-02-10 14:10 | disposition home or self-care (01) ==
LOC: M ED 10:07
DX: K31.84 Gastroparesis (principal); E87.1 Hypo-osmolality and hyponatremia; I10 Essential (primary) hypertension; K21.9 Gastro-esophageal reflux disease without esophagitis; E78.5 Hyperlipidemia, unspecified; F32.A Depression, unspecified; G43.909 Migraine, unspecified, not intractable, without status migrainosus; K58.9 Irritable bowel syndrome, unspecified; F10.10 Alcohol abuse, uncomplicated; Z88.0 Allergy status to penicillin; Z88.1 Allergy status to other antibiotic agents; Z88.2 Allergy status to sulfonamides; Z88.8 Allergy status to other drugs, medicaments and biological substances; Z79.02 Long term (current) use of antithrombotics/antiplatelets; Z79.811 Long term (current) use of aromatase inhibitors; Z79.899 Other long term (current) drug therapy

== ENCOUNTER → 2023-02-20 | Outpatient (CLI) | payer BC ==
[2023-02-20 10:08] LABS: BLOOD UREA NITROGEN 19 MG/DL (9-23); CALCIUM LEVEL 9.4 MG/DL (8.5-10.1); CARBON DIOXIDE LEVEL 27 MMOL/L (20-31); CHLORIDE LEVEL 105 MMOL/L (98-107); CREATININE FOR GFR 0.79 MG/DL (0.55-1.30); GLOMERULAR FILTRATION RATE > 60.0 (>51); GLUCOSE, FASTING 90 MG/DL (60-100); POTASSIUM SERUM 4.1 MMOL/L (3.5-5.1); SODIUM LEVEL 140 MMOL/L (136-145)
== END ==
LOC: M LAB 09:13
PROVIDERS: ATTEND Emergency Medicine
DX: E87.1 Hypo-osmolality and hyponatremia (principal)

== ENCOUNTER → 2023-08-01 | Outpatient (REF) ==
[~2023-08-01] MED LIST changes: +AMLO2.5T3 PO
== END ==
LOC: M EMP 13:59
PROVIDERS: ATTEND Family Medicine
DX: Z11.52 Encounter for screening for COVID-19 (principal)

== ENCOUNTER 2023-08-02 19:11 | Emergency (ER) | payer BC ==
[~2023-08-02] VITALS: Ht 157.5 cm; Wt 58.0 kg
[~2023-08-02 19:11] MED LIST changes: -AMLO2.5T3 PO
[2023-08-02] MEDS ORDERED: AMLO2.5T3 PO (19:29)
[2023-08-02 21:04] LABS: BASO % 0.3 % (0.0-1.0); EOS % 0.3 % (0.0-3.0); HEMOGLOBIN 12.6 g/dl (12.0-15.5); LYMPH # 2.1 10^3/uL (1.5-5.0); LYMPH % 23.6 % (24.0-44.0); MEAN CORPUSCULAR HEMOGLOBIN 30.3 pg (27.0-33.0); MEAN CORPUSCULAR HGB CONC 34.1 g/dl (32.0-36.5); MEAN CORPUSCULAR VOLUME 88.9 fl (80.0-96.0); MONO # 0.5 10^3/uL (0.0-0.8); MONO % 5.1 % (2.0-8.0); NEUTROPHILS # 6.3 10^3/uL (1.5-8.5); NEUTROPHILS % 70.4 % (36.0-66.0); PLATELET COUNT, AUTOMATED 254 10^3/uL (150-450); RED BLOOD COUNT 4.16 10^6/uL (4.00-5.40)
[2023-08-02 21:21] LABS: CK-MB VALUE MASS < 1.0 NG/ML (<3.6)
[2023-08-02 21:22] LABS: ALBUMIN 4.3 G/DL (3.2-5.2); ALKALINE PHOSPHATASE 74 U/L (46-116); ALT/SGPT 33 U/L (7.0-40); AST/SGOT 15 U/L (<34); BILIRUBIN,TOTAL 0.5 MG/DL (0.3-1.2); BLOOD UREA NITROGEN 25 MG/DL (9-23); CALCIUM LEVEL 9.8 MG/DL (8.5-10.1); CARBON DIOXIDE LEVEL 27 MMOL/L (20-31); CHLORIDE LEVEL 104 MMOL/L (98-107); CPK CREATINE PHOSPHOKINASE 72 U/L (34-145); CREATININE FOR GFR 0.81 MG/DL (0.55-1.30); GLOMERULAR FILTRATION RATE > 60.0 (>51); GLUCOSE, FASTING 92 MG/DL (60-100); MB/CK RELATIVE INDEX 1.38 (< OR =4); POTASSIUM SERUM 3.7 MMOL/L (3.5-5.1); SODIUM LEVEL 138 MMOL/L (136-145); TOTAL PROTEIN 6.8 G/DL (5.7-8.2)
[2023-08-03] MEDS: NS 1,000 ML IV ONE (00:47)
[2023-08-03 02:00] VITALS: TEMP 98.3; O2SAT 98
[2023-08-03 02:01] VITALS: BP 132/73
== END 2023-08-03 02:26 | disposition home or self-care (01) ==
LOC: M ED 19:11
DX: I95.1 Orthostatic hypotension (principal); E86.0 Dehydration; I10 Essential (primary) hypertension; E78.5 Hyperlipidemia, unspecified; K21.9 Gastro-esophageal reflux disease without esophagitis; K58.9 Irritable bowel syndrome, unspecified; Z88.0 Allergy status to penicillin; Z88.2 Allergy status to sulfonamides; Z88.8 Allergy status to other drugs, medicaments and biological substances; Z91.040 Latex allergy status; Z79.899 Other long term (current) drug therapy

== ENCOUNTER → 2023-12-17 | Outpatient (CLI) | payer BC ==
[~2023-12-17] MED LIST changes: +AMLO2.5T3 PO
[2023-12-17 10:04] LABS: BASO # 0.1 10^3/uL (0.0-0.2); BASO % 0.8 % (0.0-1.0); EOS # 0.1 10^3/uL (0.0-0.5); HEMATOCRIT 37.8 % (36.0-47.0); HEMOGLOBIN 12.7 g/dl (12.0-15.5); LYMPH # 2.2 10^3/uL (1.5-5.0); LYMPH % 36.9 % (24.0-44.0); MEAN CORPUSCULAR HEMOGLOBIN 30.7 pg (27.0-33.0); MEAN CORPUSCULAR HGB CONC 33.6 g/dl (32.0-36.5); MEAN CORPUSCULAR VOLUME 91.3 fl (80.0-96.0); MONO # 0.4 10^3/uL (0.0-0.8); MONO % 6.7 % (2.0-8.0); NEUTROPHILS # 3.2 10^3/uL (1.5-8.5); NEUTROPHILS % 54.3 % (36.0-66.0); PLATELET COUNT, AUTOMATED 233 10^3/uL (150-450); RED BLOOD COUNT 4.14 10^6/uL (4.00-5.40)
[2023-12-17 10:19] LABS: HEMOGLOBIN A1c 5.5 % (4.0-6.0)
[2023-12-17 10:30] LABS: CREATININE, URINE 19.1 MG/DL; MALB URINE SIEMENS < 3.0 MG/L; MAU/CREAT RATIO 15.7 MCG/MG (0.0-30.0)
[2023-12-17 10:31] LABS: C REACTIVE PROTEIN QUANTITATIV < 0.40 MG/DL (<1.0)
[2023-12-17 10:32] LABS: ALBUMIN 3.8 G/DL (3.2-5.2); ALKALINE PHOSPHATASE 75 U/L (46-116); ALT/SGPT 30 U/L (7.0-40); AST/SGOT 13 U/L (<34); BILIRUBIN,TOTAL 0.5 MG/DL (0.3-1.2); BLOOD UREA NITROGEN 19 MG/DL (9-23); CALCIUM LEVEL 9.7 MG/DL (8.5-10.1); CARBON DIOXIDE LEVEL 30 MMOL/L (20-31); CHLORIDE LEVEL 108 MMOL/L (98-107); CHOLESTEROL LEVEL 198 MG/DL (<200); CHOLESTEROL RISK RATIO 3.36 (<5); CREATININE FOR GFR 0.68 MG/DL (0.55-1.30); GLOMERULAR FILTRATION RATE > 60.0 (>51); GLUCOSE, FASTING 91 MG/DL (60-100); HDL CHOLESTEROL 58.8 MG/DL (>40); LDL CHOLESTEROL 121.4 MG/DL (<100); NON-HDL-C 139.2 MG/DL; POTASSIUM SERUM 4.4 MMOL/L (3.5-5.1); SODIUM LEVEL 138 MMOL/L (136-145); TOTAL PROTEIN 6.2 G/DL (5.7-8.2); TRIGLYCERIDES LEVEL 89 MG/DL (<150)
[2023-12-17 10:34] LABS: FREE T4 1.04 NG/DL (0.89-1.76); THYROID STIMULATING HORMONE 1.473 uIU/ML (0.55-4.78); VITAMIN B12 LEVEL 408 PG/ML (211-911)
[2023-12-17 10:35] LABS: TOTAL 25(OH) VITAMIN D 33.7 NG/ML (20.0-100.0)
== END ==
LOC: M LAB 08:31
PROVIDERS: ATTEND Internal Medicine Hematology
DX: I10 Essential (primary) hypertension (principal)

== ENCOUNTER → 2024-04-20 | Outpatient (CLI) | payer BC ==
[2024-04-20 13:49] LABS: BLOOD UREA NITROGEN 12 MG/DL (9-23); CALCIUM LEVEL 9.8 MG/DL (8.5-10.1); CARBON DIOXIDE LEVEL 28 MMOL/L (20-31); CHLORIDE LEVEL 107 MMOL/L (98-107); CREATININE FOR GFR 0.74 MG/DL (0.55-1.30); GLOMERULAR FILTRATION RATE > 60.0 (>51); GLUCOSE, FASTING 77 MG/DL (60-100); POTASSIUM SERUM 4.2 MMOL/L (3.5-5.1); SODIUM LEVEL 141 MMOL/L (136-145)
== END ==
LOC: M PLALAB 10:33
PROVIDERS: ATTEND Internal Medicine Hematology
DX: Z01.818 Encounter for other preprocedural examination (principal)

== ENCOUNTER → 2024-11-17 | Outpatient (CLI) | payer OTHER | LOC: M WHC 13:53 | PROVIDERS: ATTEND Student in an Organized Health Care Education/Training Program | DX: Z12.31 Encounter for screening mammogram for malignant neoplasm of breast (principal); R92.323 Mammographic fibroglandular density, bilateral breasts ==

== ENCOUNTER → 2025-05-13 | Outpatient (REF) | payer OTHER | LOC: M SFHCPLAZ 14:37 | PROVIDERS: ATTEND Family Medicine | DX: Z53.9 Procedure and treatment not carried out, unspecified reason (principal) ==

== ENCOUNTER → 2025-05-13 | Outpatient (CLI) | payer OTHER ==
[2025-05-13 17:32] LABS: PLATELET COUNT, AUTOMATED 238 10^3/uL (150-450)
[2025-05-13 17:44] LABS: VITAMIN B12 LEVEL 397.0 PG/ML (211-911)
== END ==
LOC: M PLALAB 14:58
PROVIDERS: ATTEND Family Medicine
DX: D64.9 Anemia, unspecified (principal)